=== PATIENT | female | born 1970 | race Caucasian/White ===

== ENCOUNTER 2022-01-09 01:33 | Emergency (ER) | payer OTHER, SELFPAY ==
[2022-01-09 01:53] VITALS: BP 128/67; PULSE 72; RESP 16; TEMP 36.8; O2SAT 97
[2022-01-09 01:59] VITALS: BP 128/67; PULSE 72; RESP 16; TEMP 36.8; O2SAT 98; BMI 35.1
[2022-01-09] MEDS: Ketorolac Tromethamine 30 MG/ML VIAL 15 MG IM (02:08)
[2022-01-09] MEDS: Acetaminophen 325 MG TABLET 975 MG PO (02:09)
[2022-01-09 02:51] LABS: MANUAL DIFF FLAG NO
[2022-01-09 02:52] LABS: Basophils Percent Auto 0.3 % (0-2); Eosinophils Absolute Auto 0.1 X10*3/uL (0.0-0.4); Eosinophils Percent Auto 1.4 % (0-4); Hematocrit 42.6 % (37.0-47.0); Hemoglobin 13.7 g/dl (12.0-16.0); Imm Gran Abs Auto 0.06 X10*3/uL (0.00-0.03); Imm Gran Pct Auto 0.6 % (0.0-0.4); Lymphocytes Absolute Auto 2.9 X10*3/uL (1.2-4.9); Mean Corpuscular HGB Conc 32.2 g/dl (31.0-35.0); Mean Corpuscular Hemoglobin 27.8 pg (27.0-33.0); Mean Corpuscular Volume 86.6 fL (80.0-98.0); Mean Platelet Volume 9.5 fL (9.4-12.3); Monocytes Absolute Auto 0.5 X10*3/uL (0.1-1.2); Monocytes Percent Auto 4.9 % (2-11); Neutrophils Absolute Auto 6.1 x10*3/uL (2.0-8.3); Neutrophils Percent Auto 62.8 % (45-73); Platelet Count 325 X10*3/uL (160-400); Red Blood Count 4.92 X10*6/uL (4.20-5.50); Red Cell Distribution Width 14.6 % (11.0-16.0); White Blood Count 9.7 X10*3/uL (4.8-10.8)
[2022-01-09 03:14] LABS: Alanine Aminotransferase 18 U/L (0-31); Albumin Level 3.8 g/dL (3.5-5.0); Alkaline Phosphatase 103 U/L (39-117); Anion Gap 14 (12-20); Aspartate Amino Transferase 24 U/L (5-31); Bilirubin Total 0.4 mg/dL (0.0-1.0); Blood Urea Nitrogen 7 mg/dL (9-16); Calcium 9.4 mg/dL (8.4-10.2); Carbon Dioxide 23 mmol/L (22-29); Chloride 108 mmol/L (96-108); Creatinine Clr Calc Pharmacy 59.2; Estimated Glomerular Filt Rate 47; Glucose Random 89 mg/dL (60-115); Potassium 3.9 mmol/L (3.3-5.1); Sodium 141 mmol/L (135-145); Total Protein 7.6 g/dL (6.5-8.0)
--- NOTE | 2022-01-09 03:38 | PC.NURSE ---
Pt states im feeling better after being medicated. pt awaiting for d/c instructions. will continue to monitor pt.
--- NOTE | 2022-01-09 03:54 | ED_ITS ---
HPI - Headache General Chief Complaint: Headache Stated Complaint: BODY TINGLING,SOLO TOP OF HEAD X'S 2 HOURS PER EMS Time Seen by Provider: 01/09/22 01:58 Source: patient Mode of arrival: EMS History of Present Illness HPI Narrative: This is a 51-year-old female who presents via EMS for feeling tingly all over just prior to taking her evening propanolol and states that she took her blood pressure and it was noted be 148/90 and she felt thereafter that she had pain on the top of her head which started approximately 2330. She denies any fever, chills, nausea, vomiting, diarrhea, shortness of breath, new cough for congestion and denies any chest pain or palpitations. Related Data Allergies Allergy/AdvReac Type Severity Reaction Status Date / Time azathioprine [From IMURAN] Allergy Severe UNKNOWN Unverified 08/17/20 15:13 Penicillins [PCN] Allergy Severe ANAPHYLAXIS Unverified 08/17/20 15:13 sumatriptan [SUMATRIPTAN] Allergy Intermediate SWELLING Unverified 08/17/20 15:13 amoxicillin [AMOXICILLIN] Allergy Unknown RAPID Unverified 08/17/20 15:13 HEART RATE quetiapine [From SEROQUEL] Allergy Unknown RAPID Unverified 08/17/20 15:13 HEART RATE aspirin [ASA] AdvReac Mild RASH WHEN Unverified 08/17/20 15:13 TAKEN FOR A LONG TIME contrast dye ? type Allergy Unknown Uncoded 04/08/14 00:00 Review of Systems Review of Systems: Pertinent positives and negatives as stated HPI 10 point review of systems is otherwise negative. PMFSH Past Medical History Source: nursing notes reviewed Social History Social History Advance Directives: No Patient : No Physical Exam Vital Signs: Vital Signs: Last Vital Signs Temp 98.2 F 01/09/22 01:59 Pulse 72 01/09/22 01:59 Resp 16 01/09/22 01:59 BP 128/67 01/09/22 01:59 Pulse Ox 98 01/09/22 01:59 BMI result Body Mass Index 35.1 VITAL SIGNS: Reviewed. GENERAL: Well developed, well nourished, in no acute distress. HEAD: Normocephalic/atraumatic EYES: PERRLA, EOMI OROPHARYNX: no oral lesions noted, posterior pharynx clear LUNGS: Normal breath sounds. No adventitious sounds or accessory muscle use. [id number]<> CARDIOVASCULAR: Regular rate and rhythm without noted murmurs, no JVD or lower e xtremity edema. ABDOMEN: Soft, non-tender, non-distended with bowel sounds. MUSCULOSKELETAL: No tenderness, deformities, or effusions noted on gross inspection. EXTREMITIES: No cyanosis, clubbing or edema. SKIN: Inspection of the skin reveals no rashes NEUROLOGIC: Alert and oriented x 4. Strength and sensation to light touch were grossly intact x 4, no facial asymmetry, no pronator drift, cranial nerves 2-12 are grossly intact, no clonus Course Course Course Narrative: 51-year-old female with history and clinical presentation of migraine and suspect that this is part of her migraine spectrum, there is a possibility of metabolic derangement but low clinical suspicion for intracranial neurologic problem. On review of all investigations there are no acute findings and after patient received combination of analgesics she states she has had complete resolution of her headache and feels ready to go home. She is otherwise discharged home in stable condition. MDM - Headache Lab Data Result diagrams: 01/09/22 02:37 01/09/22 02:37 Labs: Lab Results 01/09/22 01/09/22 Range/Units 02:37 02:37 WBC 9.7 (4.8-10.8) X10*3/uL RBC 4.92 (4.20-5.50) X10*6/uL Hgb 13.7 (12.0-16.0) g/dl Hct 42.6 (37.0-47.0) % MCV 86.6 (80.0-98.0) fL MCH 27.8 (27.0-33.0) pg MCHC 32.2 (31.0-35.0) g/dl RDW 14.6 (11.0-16.0) % Plt Count 325 (160-400) X10*3/uL MPV 9.5 (9.4-12.3) fL Immature Gran % (Auto) 0.6 H (0.0-0.4) % Neut % (Auto) 62.8 (45-73) % Lymph % (Auto) 30.0 (20-40) % [place] % (Auto) 4.9 (2-11) % Eos % (Auto) 1.4 (0-4) % Baso % (Auto) 0.3 (0-2) % Lymph # (Auto) 2.9 (1.2-4.9) X10*3/uL [place] # (Auto) 0.5 (0.1-1.2) X10*3/uL Eos # (Auto) 0.1 (0.0-0.4) X10*3/uL Baso # (Auto) 0.0 (0.0-0.2) X10*3/uL Abs Immat Gran (auto) 0.06 H (0.00-0.03) X10*3/uL Absolute Neuts (auto) 6.1 (2.0-8.3) x10*3/uL Absolute Nucleated RBC 0.000 (0.0-0.012) X10*3/uL Nucleated RBC % (auto) 0.0 (0.0-0.2) /100WBC Sodium 141 (135-145) mmol/L Potassium 3.9 (3.3-5.1) mmol/L Chloride 108 (96-108) mmol/L Carbon Dioxide 23 (22-29) mmol/L Anion Gap 14 (12-20) BUN 7 L (9-16) mg/dL Creatinine 1.21 (0.5-1.4) mg/dL Estim Creat Clear Calc 59.2 Estimated GFR 47 Random Glucose 89 (60-115) mg/dL Calcium 9.4 (8.4-10.2) mg/dL Total Bilirubin 0.4 (0.0-1.0) mg/dL AST 24 (5-31) U/L ALT 18 (0-31) U/L Alkaline Phosphatase 103 (39-117) U/L Total Protein 7.6 (6.5-8.0) g/dL Albumin 3.8 (3.5-5.0) g/dL Discharge Plan Discharge Clinical Impression: Migraine Patient Disposition: Home, Self-Care Instructions: Migraine Headache (ED) Additional Instructions: 1. Resume all home medications as prescribed. 2. Follow-up with your primary care provider next 1-2 days for re-evaluation further outpatient management. Return to the ER for acute worsening of symptoms.
== END 2022-01-09 04:34 | disposition home or self-care (01) ==
PROVIDERS: Emergency Provider Student in an Organized Health Care Education/Training Program
DX: G43.909 Migraine, unspecified, not intractable, without status migrainosus (principal)
CPT/HCPCS: 36415; 80053; 85025; 96372; 99283; 99284; J1885

== ENCOUNTER 2022-05-03 07:07 | Emergency (ER) | payer OTHER, SELFPAY ==
--- NOTE | ~2022-05-03 | CT_ITS ---
EXAMINATION: CT ABDOMEN AND PELVIS WITHOUT CONTRAST CLINICAL INFORMATION: Lower abdominal pain. Suspected fistula. COMPARISON: None TECHNIQUE: Multidetector volumetric imaging was performed from the superior aspect of the liver through the pubic symphysis. Sagittal and coronal reformatted images were obtained on the technologist's workstation. This CT examination was performed using dose optimization techniques as appropriate, variously including the following: *Automated exposure control *Adjustment of mA and/or kV according to patient size (this includes techniques or standardized protocols for targeted exams where dose is matched to indication/reason for exam; i.e. extremities or head) *Use of iterative reconstruction technique DLP: 692 mGy-cm FINDINGS: LUNG BASES: The visualized lung bases are unremarkable. LIVER, GALLBLADDER, AND BILIARY TREE: The liver is normal in size, shape, and attenuation. No focal hepatic lesion or biliary ductal dilatation is present. The gallbladder is unremarkable with no evidence of radiopaque gallstones, gallbladder wall thickening, or obvious pericholecystic inflammatory changes. PANCREAS: Unremarkable. SPLEEN: Unremarkable. ADRENAL GLANDS: Unremarkable. KIDNEYS AND URETERS: The kidneys are normal in size, shape, and attenuation. No hydronephrosis, hydroureter, or calculi seen. No perinephric stranding. BLADDER: Unremarkable. GASTROINTESTINAL TRACT: The stomach is unremarkable. Normal caliber small bowel. No obstruction. Contrast extends throughout the small bowel and much of the colon. Mild colonic stool burden. No colonic wall thickening or adjacent inflammation. No perianal inflammation. No fistulous tract identified. No fluid collections. ABDOMINAL WALL: No significant hernia is appreciated. LYMPH NODES: Normal. VASCULAR: Normal caliber aorta. 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 PELVIC VISCERA: The uterus and adnexa are unremarkable. OSSEOUS STRUCTURES: No acute or suspicious osseous abnormality. CT/CT abdomen pelvis wo con IMPRESSION: No acute finding in the abdomen or pelvis. No inflammatory changes. No perirectal fistula identified. No fluid collection. Fleischner guidelines were followed.
[2022-05-03 07:11] VITALS: BP 151/80; PULSE 91; RESP 17; TEMP 37.1; O2SAT 96; BMI 30.9
[2022-05-03 07:32] LABS: MANUAL DIFF FLAG NO
[2022-05-03 07:33] LABS: Color Urine YELLOW; Glucose Urine UA NEG (NEG); Leukocyte Esterase Urine 3+ (NEG); Nitrite Urine POS (NEG); Specific Gravity - Urine <= 1.005 (1.005-1.025); UACC Culture Trigger YES; Urine Blood 2+ (NEG); Urine Ketones NEG (NEG); Urine Protein TRACE MG/DL (NEG-TRACE)
[2022-05-03 07:34] LABS: Appearance Urine CLOUDY
[2022-05-03 07:35] LABS: Basophils Percent Auto 0.3 % (0-2); Eosinophils Absolute Auto 0.2 X10*3/uL (0.0-0.4); Eosinophils Percent Auto 2.1 % (0-4); Hematocrit 41.6 % (37.0-47.0); Hemoglobin 13.8 g/dl (12.0-16.0); Imm Gran Abs Auto 0.03 X10*3/uL (0.00-0.03); Imm Gran Pct Auto 0.3 % (0.0-0.4); Lymphocytes Absolute Auto 2.1 X10*3/uL (1.2-4.9); Lymphocytes Percent Auto 21.4 % (20-40); Mean Corpuscular HGB Conc 33.2 g/dl (31.0-35.0); Mean Corpuscular Hemoglobin 29.1 pg (27.0-33.0); Mean Corpuscular Volume 87.6 fL (80.0-98.0); Mean Platelet Volume 8.9 fL (9.4-12.3); Monocytes Absolute Auto 0.6 X10*3/uL (0.1-1.2); Monocytes Percent Auto 5.7 % (2-11); Neutrophils Absolute Auto 6.8 x10*3/uL (2.0-8.3); Neutrophils Percent Auto 70.2 % (45-73); Platelet Count 308 X10*3/uL (160-400); Red Blood Count 4.75 X10*6/uL (4.20-5.50); Red Cell Distribution Width 13.9 % (11.0-16.0); White Blood Count 9.7 X10*3/uL (4.8-10.8)
[2022-05-03 07:46] LABS: Bacteria Urine TRACE /LPF; Squamous Epithelial Cell Urine 1+ /LPF; WBC Urine TNTC /HPF (0-4)
[2022-05-03 07:50] LABS: Alanine Aminotransferase 48 U/L (0-31); Albumin Level 3.8 g/dL (3.5-5.0); Alkaline Phosphatase 120 U/L (39-117); Anion Gap 12 (12-20); Aspartate Amino Transferase 48 U/L (5-31); Bilirubin Total 0.5 mg/dL (0.0-1.0); Blood Urea Nitrogen 11 mg/dL (9-16); Calcium 9.6 mg/dL (8.4-10.2); Carbon Dioxide 22 mmol/L (22-29); Chloride 109 mmol/L (96-108); Creatinine Clr Calc Pharmacy 57.7; Estimated Glomerular Filt Rate 50; Glucose Random 104 mg/dL (60-115); Potassium 4.2 mmol/L (3.3-5.1); Sodium 139 mmol/L (135-145); Total Protein 7.5 g/dL (6.5-8.0)
--- NOTE | 2022-05-03 08:19 | ED.FEMALEGU ---
HPI - Female Genitourinary General Chief complaint: Urogenital-Female Stated complaint: UTI Time Seen by Provider: 05/03/22 08:19 Source: patient Mode of arrival: ambulatory History of Present Illness HPI Narrative: 52-year-old female with history of Crohn's presents with 4 UTIs within 3 months which is abnormal for her, patient reports chills and sweating but denies any nausea or vomiting states she has lower abdominal discomfort and feels like she has ?bubbles when she pees?. Patient states she is on Remicade. Related Data Previous Rx's Medication Instructions Recorded levofloxacin 750 mg tablet 750 mg PO DAILY 7 Days #7 tab 05/03/22 Allergies Allergy/AdvReac Type Severity Reaction Status Date / Time azathioprine [From IMURAN] Allergy Severe UNKNOWN Verified 05/03/22 12:06 Penicillins [PCN] Allergy Severe ANAPHYLAXIS Verified 05/03/22 12:06 sumatriptan [SUMATRIPTAN] Allergy Intermediate SWELLING Verified 05/03/22 12:06 amoxicillin [AMOXICILLIN] Allergy Unknown RAPID Verified 05/03/22 12:06 HEART RATE quetiapine [From SEROQUEL] Allergy Unknown RAPID Verified 05/03/22 12:06 HEART RATE aspirin [ASA] AdvReac Mild RASH WHEN Verified 05/03/22 12:06 TAKEN FOR A LONG TIME contrast dye ? type AdvReac Unknown hyperventil Uncoded 05/03/22 12:06 ation Review of Systems Review of Systems: Pertinent positives and negatives as stated in HPI 10 point review of systems is otherwise negative. PMFSH Past Medical History Source: nursing notes reviewed Social History Social History Advance Directives: No Advance Directives Information Provided: No Physical Exam Vital Signs: Vital Signs: Last Vital Signs Temp 98.7 F 05/03/22 07:11 Pulse 79 05/03/22 12:30 Resp 14 05/03/22 12:30 BP 133/81 05/03/22 12:30 Pulse Ox 95 05/03/22 12:30 BMI result Body Mass Index 30.9 VITAL SIGNS: Reviewed. GENERAL: Well developed, well nourished, in no acute distress. HEAD: Normocephalic/atraumatic EYES: PERRLA, EOMI EARS: Ext canals without abnormality OROPHARYNX: no oral lesions noted, posterior pharynx clear LUNGS: Normal breath sounds. No adventitious sounds or accessory muscle use. SpO2<96> CARDIOVASCULAR: Regular rate and rhythm without noted murmurs ABDOMEN: Soft, lower abdominal discomfort without rebound, non-distended with bowel sounds. MUSCULOSKELETAL: No tenderness, deformities, or effusions noted on gross inspection. EXTREMITIES: No cyanosis, clubbing or edema. SKIN: Inspection of the skin reveals no rashes NEUROLOGIC: Alert and oriented x 4. Strength and sensation to light touch were grossly intact x 4. Course Course Course Narrative: 52-year-old female with history and clinical presentation suggestive of UTI, but given history and underlying medical diagnosis suspect this may be a colovesicular fistula. Patient receiving IV fluids, antibiotics, and gave some medication for her pain. I discussed the case with surgery on-call who agrees with further imaging and recommends abdomen pelvis with p.o. contrast. Review of all investigations negative for evidence of inflammatory changes on CT scan and otherwise no acute abnormalities other than the UTI. This patient has been treated previously will place her on a longer course of antibiotics and have her follow-up with her chief of staff doctor, and/or provide her with a referral. In addition, she was recommended to follow-up with a urologist. I informed Surgical Services of all results and findings. There is agreement patient to follow-up with gastroenterology. MDM - Female Genitourinary Lab Data Result diagrams: 05/03/22 07:26 05/03/22 07:26 Labs: Lab Results 05/03/22 05/03/22 05/03/22 Range/Units 07:26 07:26 07:26 WBC 9.7 (4.8-10.8) X10*3/uL RBC 4.75 (4.20-5.50) X10*6/uL Hgb 13.8 (12.0-16.0) g/dl Hct 41.6 (37.0-47.0) % MCV 87.6 (80.0-98.0) fL MCH 29.1 (27.0-33.0) pg MCHC 33.2 (31.0-35.0) g/dl RDW 13.9 (11.0-16.0) % Plt Count 308 (160-400) X10*3/uL MPV 8.9 L (9.4-12.3) fL Immature Gran % (Auto) 0.3 (0.0-0.4) % Neut % (Auto) 70.2 (45-73) % Lymph % (Auto) 21.4 (20-40) % [place] % (Auto) 5.7 (2-11) % Eos % (Auto) 2.1 (0-4) % Baso % (Auto) 0.3 (0-2) % Lymph # (Auto) 2.1 (1.2-4.9) X10*3/uL [place] # (Auto) 0.6 (0.1-1.2) X10*3/uL Eos # (Auto) 0.2 (0.0-0.4) X10*3/uL Baso # (Auto) 0.0 (0.0-0.2) X10*3/uL Abs Immat Gran (auto) 0.03 (0.00-0.03) X10*3/uL Absolute Neuts (auto) 6.8 (2.0-8.3) x10*3/uL Absolute Nucleated RBC 0.000 (0.0-0.012) X10*3/uL Nucleated RBC % (auto) 0.0 (0.0-0.2) /100WBC Sodium 139 (135-145) mmol/L Potassium 4.2 (3.3-5.1) mmol/L Chloride 109 H (96-108) mmol/L Carbon Dioxide 22 (22-29) mmol/L Anion Gap 12 (12-20) BUN 11 D (9-16) mg/dL Creatinine 1.15 (0.5-1.4) mg/dL Estim Creat Clear Calc 57.7 Estimated GFR 50 Random Glucose 104 (60-115) mg/dL Calcium 9.6 (8.4-10.2) mg/dL Total Bilirubin 0.5 (0.0-1.0) mg/dL AST 48 H D (5-31) U/L ALT 48 H (0-31) U/L Alkaline Phosphatase 120 H (39-117) U/L Total Protein 7.5 (6.5-8.0) g/dL Albumin 3.8 (3.5-5.0) g/dL Urine Color YELLOW Urine Appearance CLOUDY Urine pH 6.0 (5.0-8.0) Ur Specific [place] <= 1.005 (1.005-1.025) Urine Protein TRACE (NEG-TRACE) MG/DL Urine Glucose (UA) NEG (NEG) MG/DL Urine Ketones NEG (NEG) MG/DL Urine Blood 2+ H (NEG) Urine Nitrite POS H (NEG) Ur Leukocyte Esterase 3+ H (NEG) Urine RBC 5-9 H (0) /HPF Urine WBC TNTC H (0-4) /HPF Ur Squamous Epith Cells 1+ /LPF Urine Bacteria TRACE /LPF Discharge Plan Discharge Clinical Impression: Urinary tract infection, Abdominal pain Patient Disposition: Home, Self-Care Instructions: Kidney Infection (ED), Abdominal Pain (ED), Levofloxacin (By mouth) Additional Instructions: 1. Resume all home medications as prescribed. 2. Complete the entire course of antibiotics as prescribed. However, follow-up with your primary care provider so that the results of the urine culture can be reviewed and your antibiotics can be adjusted accordingly. Recommend [id number] Tylenol/ibuprofen as needed for pain control. 3. Call the office of your primary care provider today and set up an appointment for re-evaluation. Return to the ER for worsening symptoms. Prescriptions: New levofloxacin 750 mg tablet 750 mg PO DAILY 7 Days Qty: 7 0RF Referrals: Lane Garvin [Physician] - Stand Alone Forms: Work/School Release
[2022-05-03 09:01] VITALS: BP 129/80; PULSE 81; RESP 16; O2SAT 96
[2022-05-03] MEDS: cefTRIAXone sodium 1 GM in 0.9 % Sodium Chloride 50 ML IV (10:41)
[2022-05-03] MEDS: 0.9 % Sodium Chloride 1,000 ML 999 ML IV (10:42)
[2022-05-03] MEDS: Ketorolac Tromethamine 30 MG/ML VIAL 15 MG IVPUSH (12:08)
[2022-05-03 12:30] VITALS: BP 133/81; PULSE 79; RESP 14; O2SAT 95
[2022-05-03] MEDS: Barium Sulfate Oral (Mocha) 450 ML ORAL.SUSP 900 ML PO (13:05)
== END 2022-05-03 14:52 | disposition home or self-care (01) ==
PROVIDERS: Emergency Provider Student in an Organized Health Care Education/Training Program
DX: N39.0 Urinary tract infection, site not specified (principal); R10.30 Lower abdominal pain, unspecified; K50.90 Crohn's disease, unspecified, without complications; Z79.899 Other long term (current) drug therapy; Z87.440 Personal history of urinary (tract) infections
CPT/HCPCS: 36415; 74176; 80053; 81001; 85025; 87086; 96365; 96375; 99283; 99284; J0696; J1885

== ENCOUNTER 2023-11-30 22:21 | Emergency (ER) | payer OTHER, SELFPAY ==
--- NOTE | 2023-11-30 | ECG_ITS ---
Test Reason : TACHY Blood Pressure : / mmHG Vent. Rate : 109 BPM Atrial Rate : 109 BPM P-R Int : 162 ms QRS Dur : 074 ms QT Int : 324 ms P-R-T Axes : 041 021 015 degrees QTc Int : 436 ms Sinus tachycardia Low voltage QRS Borderline ECG When compared with ECG of 12-JUL-2015 13:28, No significant change was found Referred By: Generic ED Physician Electronically Signed By:ILDEFONSO BILLINGS
[2023-11-30 22:37] VITALS: BP 158/69; BP 160/95; PULSE 107; RESP 16; TEMP 37.5; O2SAT 96; O2SAT 98; BMI 35.5
[2023-11-30 22:40] VITALS: BP 158/69; PULSE 107; PULSE 109; RESP 16; TEMP 37.5; O2SAT 96
--- NOTE | 2023-11-30 22:42 | PC.NURSE ---
Pt presents to ED with reports of feeling like her heart is racing and that she is felt pauses in her pulse while palpating starting around 2100. Pt stated she has tachycardia and takes propanolol for that. Pt also has hx of anxiety Pt is A&Ox4, GCS 15, with warm, dry skin. EMS placed a 20g IV in the Left forearm. Pt shows no obvious signs of shortness of breath or distress. Does appear to be anxious. EKG and bloodwork obtained, pt placed on night monitor, and pt waiting ED Provider.
--- NOTE | 2023-11-30 22:46 | ED.ARRPALP ---
HPI - Arrhythmia/Palpitations General Chief Complaint: Arrhythmia/Palpitations Stated Complaint: PALPITATIONS. Time Seen by Provider: 11/30/23 22:45 Source: patient Mode of arrival: EMS Limitations: no limitations History of Present Illness HPI narrative: 53-year-old female history of tachycardia on propanolol, Crohn's disease, fibromyalgia, migraine who presents emergency department for evaluation of palpitations and skipping beats. Patient states that she was watching television around 19:00 hours when she felt her heart was beating fast. She states that she then checked her pulse in felt like she was skipping beats. She does have a history of tachycardia and she took 60 mg of propanolol but this did not improve her symptoms. She felt lightheaded and dizzy as if she was going to pass out so she called an ambulance and was brought to the emergency department. At the time my evaluation she states that the palpitations have resolved. Patient states that she has increase the amount of caffeine that she drinks from 2 cups to 4 cups today. Patient also takes marijuana edibles for her fibromyalgia and Crohn's disease. She states that over the last 6 months she has increased her dose from 5 mg of THC a day to 30 mg of THC a day. She denied being under any stress or having any anxiety She denied fever, chills, diaphoresis, nausea, vomiting. Related Data Previous Rx's Medication Instructions Recorded levofloxacin 750 mg tablet 750 mg PO DAILY 7 days #7 tabs 05/03/22 Allergies Allergy/AdvReac Type Severity Reaction Status Date / Time azathioprine [From IMURAN] Allergy Severe UNKNOWN Verified 05/03/22 12:06 Penicillins [PCN] Allergy Severe ANAPHYLAXIS Verified 05/03/22 12:06 sumatriptan [SUMATRIPTAN] Allergy Intermediate SWELLING Verified 05/03/22 12:06 amoxicillin [AMOXICILLIN] Allergy Unknown RAPID Verified 05/03/22 12:06 HEART RATE quetiapine [From SEROQUEL] Allergy Unknown RAPID Verified 05/03/22 12:06 HEART RATE aspirin [ASA] AdvReac Mild RASH WHEN Verified 05/03/22 12:06 TAKEN FOR A LONG TIME contrast dye ? type AdvReac Unknown hyperventil Uncoded 05/03/22 12:06 ation Review of Systems Review of Systems: Yes all other systems are reviewed and are negative [facility] Past Medical History Attestation statement: The following information was validated with the patient. [facility] Narrative: Social history: The patient denies tobacco use. She rarely drinks alcohol. She does use 30 mg of edible marijuana per day Social History Social History Smoked in Last 30 Days: No Use of substances other than those prescribed or required for medical reasons: Yes Substance Use Type: Marijuana Substance Use Frequency: Occasionally Advance Directives: No Advance Directives Information Provided: No Patient : No Physical Exam Vital Signs: Vital Signs: Last Vital Signs Temp 99.5 F 12/01/23 00:25 Pulse 91 12/01/23 00:25 Resp 16 12/01/23 00:25 BP 129/75 12/01/23 00:25 Pulse Ox 94 12/01/23 00:25 O2 Del Method Room Air 12/01/23 00:25 BMI result Body Mass Index 35.5 Vital signs revealed an elevated pulse of 107 and elevated blood pressure of 158/69 Exam: General: Awake, alert in no distress Head: Normocephalic, atraumatic EENT: PERRL, Lids normal, sclera normal, conjunctiva normal, nose normal , ears normal, throat without erythema or exudates Neck: Supple, no adenopathy, no trachea midline or C-spine tenderness Lung: breath sounds symmetric, no wheezing, rales or rhonchi Chest: symmetric movement, nontender Heart: Tachycardia with regular rhythm, normal S1, S2 no murmurs or rubs Abdomen: soft, non-tender, nondistended, normal bowel sounds Back: no vertebral tenderness, no CVAT Extremities: no deformities, moves all extremities symmetrically Neuro: Awake, alert, oriented, normal speech,, moves all extremities symmetrically Psych: Pleasant, cooperative Medical Decision Making Medical Decision Making [facility] Narrative: 53-year-old female history of tachycardia on propanolol, Crohn's disease, fibromyalgia, migraine who presents emergency department for evaluation of palpitations and skipping beats. Symptoms started while she was at rest, she took her propanolol 60 mg orally which did not relieve her symptoms. She started feel lightheaded dizzy therefore she called 911 was brought to emergency department by ambulance. Patient has increase the amount of caffeine that she has been drinking over the last 6 months and is also increase the amount of double marijuana from 5 mg to 30 mg a day. She uses marijuana to treat her Crohn's disease and fibromyalgia. At the time my evaluation the patient was asymptomatic. Physical exam did reveal tachycardia with a regular rhythm otherwise was unremarkable. Following evaluation was ordered: CBC, CMP, troponin, TSH with free T4, EKG 00:55 My interpretation patient's laboratory evaluation is as follows: CBC normal. CMP was normal. TSH was normal. Troponin was detectable but not elevated at 6.1. Patient's EKG was consistent with sinus tachycardia otherwise unremarkable. Patient had no further episodes of palpitations while she was here in the emergency department. Patient was advised to cut down on the amount of caffeine that she uses in the continue taking her propanolol and night. She was given printed and verbal instructions and discharged home Differential Diagnosis Differential Diagnoses: The differential diagnosis associated with the presentation includes Differential diagnosis includes was not limited to myocardial infarction, myocardial ischemia, palpitations, hyperthyroidism, electrolyte abnormalities, anemia Admission/Observation Consideration of admission/observation: Escalation of care including admission/observation considered Lab Data MDM Lab Attestation statement: I reviewed the patient's lab results. 11/30/23 23:05 11/30/23 23:05 Labs: Lab Results 11/30/23 Range/Units 23:05 WBC 10.6 (4.8-10.8) X10*3/uL RBC 4.50 (4.20-5.50) X10*6/uL Hgb 13.3 (12.0-16.0) g/dl Hct 39.2 (37.0-47.0) % MCV 87.1 (80.0-98.0) fL MCH 29.6 (27.0-33.0) pg MCHC 33.9 (31.0-35.0) g/dl RDW 13.3 (11.0-16.0) % Plt Count 313 (160-400) X10*3/uL MPV 8.7 L (9.4-12.3) fL Immature Gran % (Auto) 0.3 (0.0-0.4) % Neut % (Auto) 60.6 (45-73) % Lymph % (Auto) 28.3 (20-40) % [place] % (Auto) 6.5 (2-11) % Eos % (Auto) 3.9 (0-4) % Baso % (Auto) 0.4 (0-2) % Lymph # (Auto) 3.0 (1.2-4.9) X10*3/uL [place] # (Auto) 0.7 (0.1-1.2) X10*3/uL Eos # (Auto) 0.4 (0.0-0.4) X10*3/uL Baso # (Auto) 0.0 (0.0-0.2) X10*3/uL Abs Immat Gran (auto) 0.03 (0.00-0.03) X10*3/uL Absolute Neuts (auto) 6.4 (2.0-8.3) x10*3/uL Absolute Nucleated RBC 0.000 (0.0-0.012) X10*3/uL Nucleated RBC % (auto) 0.0 (0.0-0.2) /100WBC Sodium 141 (135-145) mmol/L Potassium 4.3 (3.3-5.1) mmol/L Chloride 108 (96-108) mmol/L Carbon Dioxide 22 (22-29) mmol/L Anion Gap 15 (12-20) BUN 14 (9-16) mg/dL Creatinine 1.03 (0.5-1.4) mg/dL Estim Creat Clear Calc 68.3 Estimated GFR 56 Random Glucose 100 (60-115) mg/dL Calcium 9.3 (8.4-10.2) mg/dL Total Bilirubin 0.4 (0.0-1.0) mg/dL AST 29 (5-31) U/L ALT 27 (0-31) U/L Alkaline Phosphatase 88 (39-117) U/L Troponin I High Sens 6.1 (<3.5-17.0) ng/L Total Protein 7.1 (6.5-8.0) g/dL Albumin 3.7 (3.5-5.0) g/dL TSH 1.09 (0.32-4.0) uIU/mL Independent Interpretation I performed an independent interpretation of an: EKG Interpretation: My interpretation patient's 12 EKG done at 22:31 hours is as follows: Sinus tachycardia with a rate of 109, normal AL interval, QRS duration and QTC interval, no ST segment elevation, no ST segment depression, no PACs, no PVCs, no significant T-wave abnormalities. Chronic Conditions Patient?s care impacted by: Other (Crohn's disease, fibromyalgia, tachycardia) Discharge Plan Discharge Clinical Impression: Palpitations Patient Disposition: Home, Self-Care Instructions: Heart Palpitations (ED) Additional Instructions: Your blood work was normal. Your thyroid screening test was normal. Your EKG was unremarkable. Your symptoms are consistent with palpitations Consider cutting down on the amount of caffeine that your using. Follow-up with your doctor in 2 days. Please return to the emergency department if your symptoms get worse or if you develop any symptoms that are concerning to you. Prescriptions: No Action levofloxacin 750 mg tablet 750 mg PO DAILY 7 Days Qty: 7 0RF
[2023-11-30 23:09] LABS: MANUAL DIFF FLAG NO
[2023-11-30 23:12] LABS: Basophils Percent Auto 0.4 % (0-2); Eosinophils Absolute Auto 0.4 X10*3/uL (0.0-0.4); Eosinophils Percent Auto 3.9 % (0-4); Hematocrit 39.2 % (37.0-47.0); Hemoglobin 13.3 g/dl (12.0-16.0); Imm Gran Abs Auto 0.03 X10*3/uL (0.00-0.03); Imm Gran Pct Auto 0.3 % (0.0-0.4); Lymphocytes Percent Auto 28.3 % (20-40); Mean Corpuscular HGB Conc 33.9 g/dl (31.0-35.0); Mean Corpuscular Hemoglobin 29.6 pg (27.0-33.0); Mean Corpuscular Volume 87.1 fL (80.0-98.0); Mean Platelet Volume 8.7 fL (9.4-12.3); Monocytes Absolute Auto 0.7 X10*3/uL (0.1-1.2); Monocytes Percent Auto 6.5 % (2-11); Neutrophils Absolute Auto 6.4 x10*3/uL (2.0-8.3); Neutrophils Percent Auto 60.6 % (45-73); Platelet Count 313 X10*3/uL (160-400); Red Cell Distribution Width 13.3 % (11.0-16.0); White Blood Count 10.6 X10*3/uL (4.8-10.8)
[2023-11-30 23:30] LABS: Troponin-I High Sensitivity 6.1 ng/L (<3.5-17.0)
[2023-11-30 23:31] LABS: Alanine Aminotransferase 27 U/L (0-31); Albumin Level 3.7 g/dL (3.5-5.0); Alkaline Phosphatase 88 U/L (39-117); Anion Gap 15 (12-20); Aspartate Amino Transferase 29 U/L (5-31); Bilirubin Total 0.4 mg/dL (0.0-1.0); Blood Urea Nitrogen 14 mg/dL (9-16); Calcium 9.3 mg/dL (8.4-10.2); Carbon Dioxide 22 mmol/L (22-29); Chloride 108 mmol/L (96-108); Creatinine Clr Calc Pharmacy 68.3; Estimated Glomerular Filt Rate 56; Glucose Random 100 mg/dL (60-115); Potassium 4.3 mmol/L (3.3-5.1); Sodium 141 mmol/L (135-145); Total Protein 7.1 g/dL (6.5-8.0)
[2023-11-30 23:44] LABS: TSH reflex Free T4 1.09 uIU/mL (0.32-4.0)
[2023-12-01 00:25] VITALS: BP 129/75; PULSE 91; RESP 16; TEMP 37.5; O2SAT 94
== END 2023-12-01 01:01 | disposition home or self-care (01) ==
PROVIDERS: Emergency Provider Emergency Medicine Emergency Medical Services
DX: R00.2 Palpitations (principal); R00.0 Tachycardia, unspecified; K50.90 Crohn's disease, unspecified, without complications; F12.90 Cannabis use, unspecified, uncomplicated; Z79.899 Other long term (current) drug therapy
CPT/HCPCS: 36415; 80053; 84443; 84484; 85025; 93005; 99283; 99285

== ENCOUNTER → 2023-11-30 22:31 | Outpatient (BNV) | payer OTHER, SELFPAY | PROVIDERS: Emergency Provider Emergency Medicine Emergency Medical Services; Visit Provider Internal Medicine | DX: R00.0 Tachycardia, unspecified (principal) | CPT/HCPCS: 93010 ==

== ENCOUNTER 2023-12-08 13:36 | Emergency (ER) | payer OTHER, SELFPAY ==
--- NOTE | ~2023-12-08 | XR_ITS ---
EXAMINATION: XR CHEST CLINICAL INFORMATION: Shortness of breath, chest pain. COMPARISON: Chest radiograph 06/30/2020. TECHNIQUE: 2 views of the chest were obtained. FINDINGS: Normal appearance of the cardiomediastinal silhouette. No focal consolidation, pleural effusion or pneumothorax. Thoracic spondylosis. No acute osseous findings. XR/XR chest 2V IMPRESSION: No acute cardiopulmonary findings.
--- NOTE | 2023-12-08 13:55 | ECG_ITS ---
Test Reason : chest pain Blood Pressure : / mmHG Vent. Rate : 085 BPM Atrial Rate : 085 BPM P-R Int : 186 ms QRS Dur : 072 ms QT Int : 358 ms P-R-T Axes : 047 023 024 degrees QTc Int : 426 ms Normal sinus rhythm Low voltage QRS Borderline ECG When compared with ECG of 30-NOV-2023 22:31, No significant change was found Referred By: Kimberly Loaiza Electronically Signed By:SANDY ANDERSON MD
[2023-12-08 14:02] VITALS: BP 115/68; PULSE 84; RESP 18; TEMP 37.2; O2SAT 95; BMI 34.2
--- NOTE | 2023-12-08 14:02 | ED_ITS ---
HPI - General Adult General Chief complaint: General Medical Stated complaint: Chest heaviness/SOB/Fever Source: patient Mode of arrival: ambulatory Limitations: no limitations History of Present Illness HPI narrative: Patient is a 53 year old assigned female at with no reported medical history presenting to the emergency department today with body aches, chest heaviness, and shortness of breath. Patient states that last night she began to have body aches, chest heaviness, and shortness of breath. Patient denies any dizziness, lightheadedness, abdominal pain, nausea, vomiting, fever, chills, blurry vision, double vision, loss of vision, back pain, night sweats, pain with urination, increased urinary frequency, increased urinary urgency, blood in her urine or stool, syncope or a near syncopal episode, recent trauma or falls, bowel incontinence, bladder incontinence, bowel retention, bladder retention, or any other complaints at this time. Onset (ago): day(s) (1) Severity: mild Severity scale (1-10): 3 Relieving factors: none Exacerbating factors: none Associated symptoms: chest pain and shortness of breath Treatments prior to arrival: none Related Data Previous Rx's Medication Instructions Recorded levofloxacin 750 mg tablet 750 mg PO DAILY 7 days #7 tabs 05/03/22 Allergies Allergy/AdvReac Type Severity Reaction Status Date / Time azathioprine [From IMURAN] Allergy Severe UNKNOWN Verified 05/03/22 12:06 Penicillins [PCN] Allergy Severe ANAPHYLAXIS Verified 05/03/22 12:06 sumatriptan [SUMATRIPTAN] Allergy Intermediate SWELLING Verified 05/03/22 12:06 amoxicillin [AMOXICILLIN] Allergy Unknown RAPID Verified 05/03/22 12:06 HEART RATE quetiapine [From SEROQUEL] Allergy Unknown RAPID Verified 05/03/22 12:06 HEART RATE aspirin [ASA] AdvReac Mild RASH WHEN Verified 05/03/22 12:06 TAKEN FOR A LONG TIME contrast dye ? type AdvReac Unknown hyperventil Uncoded 05/03/22 12:06 ation Review of Systems 2 Constitutional: Constitutional: Reports no additional constitutional complaints, Reports body ache(s), Denies chills, Denies fever(s) and Denies night sweats Eyes: Eyes: Reports no additional eye complaints, Denies blurry vision, Denies change in vision, Denies diplopia, Denies eye discharge, Denies loss of vision and Denies eye pain ENT: Denies dizziness Cardiovascular: Cardiovascular: Reports no additional cardiovascular complaints, Reports chest pain, Denies lightheadedness, Denies Loss of Consciousness and Reports dyspnea Respiratory: Respiratory: Reports no additional respiratory complaints and Reports dyspnea Gastrointestinal: Gastrointestinal: Reports no additional gastrointestinal complaints, Denies abdominal pain, Denies melena, Denies hematochezia, Denies change in bowel habits and Denies change in stool character Genitourinary: Genitourinary: Denies hematuria, Denies urinary frequency, Denies dysuria, Denies urinary incontinence, Denies urinary hesitancy and Denies urinary urgency Musculoskeletal: Musculoskeletal: Reports no additional musculoskeletal complaints, Denies numbness and Denies tingling Neurologic: Denies dizziness, Denies loss of vision, Denies numbness and Denies tingling Psychiatric: Psychiatric: Reports no additional psychiatric complaints Endocrine: Endocrine: Reports no additional endocrine complaints Hematologic/Lymphatic: Hematologic/Lymphatic: Reports no additional hematologic/lymphatic complaints Allergic/Immunologic: Allergic/Immunologic: Reports no additional allergic/immunologic complaints PMFSH Past Medical History Attestation statement: The following information was validated with the patient. Source: old records reviewed and nursing notes reviewed Onset Date is defined in the Problem List Problems that require an onset date and time if occurred within 24 hrs of arrival to the ED Aortic Dissection and Rupture; Neurologic impairment; Cardiopulmonary Arrest; Endotracheal Intubation; Insertion or Replacement of Mechanical Circulatory Assist Device Social History Social History Substance Use Type: Marijuana Advance Directives: No Advance Directives Information Provided: No Physical Exam ED Vital Signs: BMI result Body Mass Index 34.2 Const General: cooperative, no acute distress, alert and awake Nutritional Appearance: well nourished Orientation/consciousness: patient oriented x3 Limitations: no limitations HENMT Head: Yes normal to inspection and Yes atraumatic Ears: hearing grossly normal bilaterally and external ears normal General nose exam: Normal external nose present, no nasal discharge noted and no epistaxis Face and sinus: Yes normal facial exam, No abrasion and No laceration Mouth: Normal oral and palatal mucosa present, no drooling and no muffled voice Eyes General: appearance normal, both eyes and all related structures Periorbital: periorbital findings normal Eyelids: Yes eyelids normal Conjunctivae: conjunctivae normal Pupils: Equal, round and reactive pupils present EOM: EOMs intact bilaterally Neck Neck: Yes normal visual inspection, Yes full ROM and Yes no lymphadenopathy Chest Chest palpation & inspection: normal inspection of the chest Resp Effort & Inspection: normal respiratory effort and able to speak in complete sentences GI Inspection: Yes normal to inspection Neuro General: patient oriented x3 and moves all extremities Cranial nerves: Yes Equal, round and reactive pupils present Cognition (Neuro): normal cognition Motor exam (neuro): 5/5 motor strength present throughout Sensory Exam: Normal double simultaneous stimulation for sensation Coordination: [id number] test normal Extrem General: Yes normal to inspection, Yes full ROM and Yes capillary refill normal Psych Appearance: grossly normal Mental Status: mental status grossly normal Affect: normal affect Attitude: cooperative Thought process: Normal thought process present Thought content: Normal thought content present Insight: Good insight present (Psych) Course Course Course Narrative: RME performed by Kimberly Loaiza PA-C. Patient is a 53 year old assigned female at presenting to the emergency department with SOB, chest heaviness, and feeling genearlly unwell. Detailed physical exam and review of systems are deferred to the water project manager. Labs, imaging, and swabs ordered. Patient placed back in the waiting room pending room availability and results. Medical Decision Making Medical Decision Making [facility] Narrative: Patient is a 53 year old assigned female at with no reported medical history presenting to the emergency department today with body aches, chest pain, and shortness of breath. Patient's limited physical exam performed in triage was unremarkable. Patient's blood work showed a mildly elevated WBC count but were otherwise unremarkable. Patient's urine showed no acute process. Patient's EKG was unremarkable. Patient's chest x-ray showed no acute process. Patient left the department without completing treatment. Patient left the department before myself or any of the other emergency department clinicians could review or explain physical exam findings, test results, need or lack there of for additional testing, treatment options or a treamtent plan. Differential Diagnosis Differential Diagnoses: The differential diagnosis associated with the presentation includes COVID-19 RSV Influenza PNA STEMI NSTEMI Admission/Observation Consideration of admission/observation: Escalation of care including admission/observation considered Patient would have been admitted to the hospital had her work up had any findings where hospital admission was appropriate, her clinical presentation warranted hospital admission, and she hadn't left the department. Lab Data [facility] Lab Attestation statement: I reviewed the patient's lab results. My interpretation of these results are in the [facility] Rationale portion of this note. 12/08/23 14:19 12/08/23 14:20 Labs: Lab Results 12/08/23 12/08/23 Range/Units 14:19 14:20 WBC 14.2 H (4.8-10.8) X10*3/uL RBC 4.54 (4.20-5.50) X10*6/uL Hgb 13.3 (12.0-16.0) g/dl Hct 40.4 (37.0-47.0) % MCV 89.0 (80.0-98.0) fL MCH 29.3 (27.0-33.0) pg MCHC 32.9 (31.0-35.0) g/dl RDW 13.2 (11.0-16.0) % Plt Count 299 (160-400) X10*3/uL MPV 9.0 L (9.4-12.3) fL Immature Gran % (Auto) 0.4 (0.0-0.4) % Neut % (Auto) 77.9 H (45-73) % Lymph % (Auto) 13.6 L (20-40) % [place] % (Auto) 6.4 (2-11) % Eos % (Auto) 1.5 (0-4) % Baso % (Auto) 0.2 (0-2) % Lymph # (Auto) 1.9 (1.2-4.9) X10*3/uL [place] # (Auto) 0.9 (0.1-1.2) X10*3/uL Eos # (Auto) 0.2 (0.0-0.4) X10*3/uL Baso # (Auto) 0.0 (0.0-0.2) X10*3/uL Abs Immat Gran (auto) 0.06 H (0.00-0.03) X10*3/uL Absolute Neuts (auto) 11.1 H (2.0-8.3) x10*3/uL Absolute Nucleated RBC 0.000 (0.0-0.012) X10*3/uL Nucleated RBC % (auto) 0.0 (0.0-0.2) /100WBC PT 13.0 (11.1-13.3) SEC INR 1.1 (0.9-1.1) APTT 38.6 H (26.0-36.4) SEC Sodium 140 (135-145) mmol/L Potassium 4.4 (3.3-5.1) mmol/L Chloride 109 H (96-108) mmol/L Carbon Dioxide 22 (22-29) mmol/L Anion Gap 13 (12-20) BUN 9 (9-16) mg/dL Creatinine 0.95 (0.5-1.4) mg/dL Estim Creat Clear Calc 72.6 Estimated GFR > 60 Random Glucose 106 (60-115) mg/dL Calcium 9.5 (8.4-10.2) mg/dL Magnesium 2.1 (1.6-2.6) mg/dL Total Bilirubin 0.3 (0.0-1.0) mg/dL AST 20 (5-31) U/L ALT 17 (0-31) U/L Alkaline Phosphatase 87 (39-117) U/L Troponin I High Sens < 2.7 D (<3.5-17.0) ng/L Total Protein 7.1 (6.5-8.0) g/dL Albumin 3.8 (3.5-5.0) g/dL Urine Color Yellow Urine Appearance Clear Urine pH 6.0 (5.0-9.0) Ur Specific [place] 1.020 (1.005-1.025) Urine Protein Trace (Neg-Trace) mg/dL Urine Glucose (UA) Negative (Negative) mg/dL Urine Ketones Negative (Negative) mg/dL Urine Blood Negative (Negative) Urine Nitrite Negative (Negative) Ur Leukocyte Esterase Moderate (2+) H (Negative) Urine RBC 0-2 (0-2) /HPF Urine WBC 11-20 H (0-5) /HPF Ur Squamous Epith Cells 11-20 (0-2) /HPF Urine Bacteria None Seen (None Seen) Hyaline Casts 0-2 (0-2) /LPF Influenza Type A (PCR) NEGATIVE (Negative) Influenza Type B (PCR) NEGATIVE (Negative) RSV RNA Qual (PCR) NEGATIVE (Negative) SARS-CoV-2 RNA (RT-PCR) NEGATIVE (Negative) Independent Interpretation I performed an independent interpretation of an: EKG and Plain X-Ray Interpretation: My interpretation is in agreement with the radiologist's impression of this imaging study. - EXAMINATION: XR CHEST CLINICAL INFORMATION: Shortness of breath, chest pain. COMPARISON: Chest radiograph 06/30/2020. TECHNIQUE: 2 views of the chest were obtained. FINDINGS: Normal appearance of the cardiomediastinal silhouette. No focal consolidation, pleural effusion or pneumothorax. Thoracic spondylosis. No acute osseous findings. XR/XR chest 2V IMPRESSION: No acute cardiopulmonary findings. Dictated By: Stephanie Hameed Signed By: Electronically signed by Stephanie Hameed 12/08/23 1534 - Vent. Rate: 085 BPM Atrial Rate: 085 BPM P-R Int: 186 ms QRS Dur: 072 ms QT Int: 358 ms P-R-T Axes: 047 023 024 degrees QTc Int: 426 ms Normal sinus rhythm Low voltage QRS Borderline ECG When compared with ECG of 30-NOV-2023 22:31, No significant change was found Electronically Signed By:SHAHBAZ ANDERSON MD Dictated By: Shahbaz Anderson MD Signed By: Electronically signed by Shahbaz Anderson MD 12/08/23 2262 Radiology Impression Discussion of test interpretation with radiology: I have reviewed the radiologist's reading. Discharge Plan Discharge Clinical Impression: Chest pain, Shortness of breath, Body aches Patient Disposition: Left W/O Completing Treatment Prescriptions: No Action levofloxacin 750 mg tablet 750 mg PO DAILY 7 Days Qty: 7 0RF Discharge Date/Time: 12/08/23 17:11
== END 2023-12-08 17:11 | disposition left against medical advice (07) ==
PROVIDERS: Emergency Provider Emergency Medicine
DX: R07.89 Other chest pain (principal); R06.02 Shortness of breath; R50.9 Fever, unspecified; M79.10 Myalgia, unspecified site; Z20.822 Contact with and (suspected) exposure to COVID-19; Z20.828 Contact with and (suspected) exposure to other viral communicable diseases; Z79.899 Other long term (current) drug therapy
CPT/HCPCS: 0241U; 71046; 80053; 81001; 83735; 84484; 85025; 85610; 85730; 87086; 93005; 99283

== ENCOUNTER → 2023-12-08 13:55 | Outpatient (BNV) | payer OTHER, SELFPAY | PROVIDERS: Emergency Provider Emergency Medicine; Visit Provider Internal Medicine Cardiovascular Disease | DX: R07.9 Chest pain, unspecified (principal) | CPT/HCPCS: 93010 ==

== ENCOUNTER 2024-01-07 10:27 | Outpatient (AMB) | payer OTHER, SELFPAY ==
--- NOTE | 2024-01-07 10:39 | A.OFFPC_ITS ---
Vital Signs 01/07/24 10:42 Height 5 ft 2 in Weight 194 lb 8 oz BMI 35.6 BP 124/62 Blood Pressure Location Lt brachial Position Sitting Pulse 92 Pulse Source Pulse Oximeter Pulse Oximetry (%) 96 Oxygen Delivery Method Room Air Intake Visit Reasons: New patient-Crohn's disease, Fibromyalgia Intake Note: Patient is a new patient here to establish care for Crohn's disease, Fib romyalgia, Migraine, Bipolar, Depression, Anxiety, Chronic pain. Complaint of Fatigue, and pain in left arm. Transferring care from Dr Alcantara ([facility] medicine, [facility]). Medical records have been requested and have received. Metal Furniture Repairer Required: No Digital Sales Assistant: Not Required per policy Accompanied by: Self / Same As Patient Allergies azathioprine [From IMURAN] Allergy (Severe, Verified 01/09/24 11:25) UNKNOWN Penicillins [PCN] Allergy (Severe, Verified 01/09/24 11:25) ANAPHYLAXIS oxycodone Allergy (Intermediate, Verified 01/09/24 11:25) Palpitations amoxicillin [AMOXICILLIN] Allergy (Unknown, Verified 01/09/24 11:25) RAPID HEART RATE quetiapine [From SEROQUEL] Allergy (Unknown, Verified 01/09/24 11:25) RAPID HEART RATE aspirin [ASA] Adverse Reaction (Mild, Verified 01/09/24 11:25) RASH WHEN TAKEN FOR A LONG TIME contrast dye ? type Adverse Reaction (Unknown, Uncoded 01/09/24 11:25) hyperventilation Medication List - Last Reconciled 01/09/24 by Severo Hardwick MD desvenlafaxine succinate ER 200 mg PO QAM gabapentin 300 mg PO DAILY lamotrigine 200 mg PO DAILY omeprazole 40 mg PO DAILY ondansetron HCl 8 mg PO DAILY PRN propranolol ER 60 mg PO DAILY ustekinumab (Stelara) mg subcut Q8W ziprasidone HCl 80 mg PO BID Tobacco use date assessed: 01/07/24 Dental Screening Dental Screen Date: 01/07/24 Did you have a dental visit in the last 12 months?: Yes Did you have a dental problem in the last 6 months where you did not have access to dental care?: No Was dental information given to patient?: Patient has dentist HPI New patient-Crohn's disease, Fibromyalgia HPI Details 53-year-old female presents to the offic e to discuss her medical issues. Patient has history of fibromyalgia, active Crohn's disease and depression. She has on a disease modifying agent for the Crohn's disease. Patient is transferring with a long list of medications that need to be reviewed. Old medical chart is not available. Patient is bringing up a new complaint today. She reports she has intense urges to fall asleep during the day. She says she is fallen asleep with food in her mouth at the table, many times on the couch. She does not drive. The symptoms have been occurring for the past few months. [facility], [facility] Medical History (Updated 01/09/24 @ 11:38 by Severo Hardwick MD) Fibromyalgia Surgical History (Updated 01/07/24 @ 10:52 by CASE Blackman) History of hand surgery History of colonoscopy History of D&C History of eye surgery Family History (Updated 01/07/24 @ 10:52 by CASE Blackman) Other Mental health disorder Substance use disorder Social History (Updated 01/07/24 @ 10:53 by CASE Blackman) Housing: House Alcohol intake: never Patient Tobacco Use Status: Never used Tobacco Tobacco use type: Smokeless Tobacco e-Cigarette/Vaping Use: Currently Using Second Hand Smoke Exposure: No Substance Use Type: Marijuana service: No Current occupational status: employed Current occupation: DDS Cognitive needs: No Hearing needs: No Vision needs: Yes (Glasses) Questionnaire PHQ-9 Over the last 2 weeks, how often have you been bothered by any of the following problems? 1. Little interest or pleasure in doing things: nearly every day 2. Feeling down, depressed, or hopeless: nearly every day 3. Trouble falling or staying asleep, or sleeping too much: nearly every day 4. Feeling tired or having little energy: nearly every day 5. Poor appetite or overeating: not at all 6. Feeling bad about yourself - or that you are a failure or have let yourself or your family down: several days 7. Trouble concentrating on things, such as reading the newspaper or watching television: nearly every day 8. Moving or speaking so slowly that other people could have noticed. Or the opposite - being so fidgety or restless that you have been moving around a lot more than usual: not at all 9. Thoughts that you would be better off or of hurting yourself in some way: not at all Total score: 16 Depression Screening Interpretation: Positive Depression Screening Follow-up: Existing condition and In treatment Depression Screening Done: Yes Source: Developed by Drs. Lane Sierra, Gela Robert, Donte Alvarez and colleagues, with an educational tamiko from [employer]. Thrive Questionnaire Date Thrive assessed: 01/07/24 I am a: Patient What is your living situation today?: I have a steady place to live Within the past 12 months, did the food you bought not last and you didn't have the money to get more?: Never true Within the past 12 months, did you worry whether your food would run out before you got money to buy more?: Never true Do you have trouble paying for medicines?: No Do you have trouble getting transportation to medical appointments?: No Do you have trouble paying your heating and electricity bill?: No Do you have trouble taking care of your child, family member or friend?: No Do you have trouble with day-to-day activities such as bathing, preparing meals, shopping, managing finances, etc.?: No Are you currently unemployed and looking for a job?: No Are you interested in more education?: No Currently or been in a relationship where the following occur: no concerns reported THRIVE Score: 0 AUDIT C Alcohol Use Questionnaire (AUDIT-C) 1. How often do you have a drink containing alcohol?: Never Total Score: 0 LUL-7 AMB Questionnaire LUL-7 Date LUL - 7 assessed: 01/07/24 Feeling nervous, anxious, or on edge: 2 = More than half the days Not being able to stop or control worryin = More than half the days Worrying too much about different things: 2 = More than half the days Trouble relaxin = Nearly every day Being so restless that it is hard to sit still: 3 = Nearly every day Becoming easily annoyed or irritable: 2 = More than half the days Feeling afraid as if something awful might happen: 3 = Nearly every day Total LUL-7 score (0-4 normal; 5-9 mild; 10-14 moderate; 15-21 severe): 17 Source: Developed by Drs. Lane Sierra, Gela Robert, Donte Alvarez and colleagues, with an educational tamiko from [employer]. Physical exam (Primary Care) Vital Signs: Last Vital Signs Pulse 92 01/07/24 10:42 BP 124/62 01/07/24 10:42 Pulse Ox 96 01/07/24 10:42 Oxygen Delivery Method Room Air 01/07/24 10:42 Care Plan Goal for BP management: Blood pressure is in range. Continue current medications. BMI result Body Mass Index 35.6 BMI Assessment/Plan discussion: High (1 lb per week weight loss suggested.) BMI High, discussed plan: lifestyle, weight reduction, dietary and physical activity Tobacco/Smoking Status: Tobacco use Status Tobacco use date assessed 01/07/24 01/07/24 11:01 Patient Tobacco Use Status Never used Tobacco 01/07/24 11:01 Tobacco use type Smokeless Tobacco 01/07/24 10:53 e-Cigarette/Vaping Use Currently Using 01/07/24 11:01 PHQ-9: PHQ-9 Score PHQ-9: Total score 16 01/07/24 11:05 Depression Screening Interpretation: Positive Depression Screening Follow-up: Existing condition and In treatment Thrive Assessment: Date of Thrive Assessment Date Thrive assessed 01/07/24 01/07/24 11:01 Currently or been in a relationship where the following occur: no concerns reported Const General: cooperative and healthy appearing Nutritional Appearance: well nourished Orientation/consciousness: patient oriented x3 Limitations: no limitations HENMT Head: Yes normal to inspection Eyes General: appearance normal, both eyes and all related structures Neck Neck: Yes normal visual inspection Chest Chest palpation & inspection: normal palpation of entire chest wall Resp Effort & Inspection: normal respiratory effort Neuro General: patient oriented x3 Assessment and Plan Assessment & Plan (1) 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 (2) Fibromyalgia: Code(s): M79.7 - Fibromyalgia Plan: Old records have been requested. Entire medication list was discussed with the patient. Orders: Referrals Neurology Referral G47.419 - Narcolepsy without cataplexy Coding Level of Care Code New Pt Level 3 (46433) Diagnoses Narcolepsy G47.419 Fibromyalgia M79.7
[2024-01-07 10:42] VITALS: BP 124/62; PULSE 92; O2SAT 96; BMI 35.6
== END 2024-01-07 11:26 | disposition home or self-care (01) ==
PROVIDERS: PCP Internal Medicine; Visit Provider Internal Medicine
DX: G47.419 Narcolepsy without cataplexy (principal); M79.7 Fibromyalgia
CPT/HCPCS: 99203

== ENCOUNTER 2024-04-02 14:27 | Emergency (ER) | payer OTHER, SELFPAY ==
--- NOTE | ~2024-04-02 | CT_ITS ---
EXAMINATION: CT HEAD WITHOUT CONTRAST CLINICAL INFORMATION: Acute headache. COMPARISON: None available. TECHNIQUE: Contiguous axial imaging was performed from the skull base to vertex without intravenous administration of contrast. This CT examination was performed using dose optimization techniques as appropriate, variously including the following: *Automated exposure control *Adjustment of mA and/or kV according to patient size (this includes techniques or standardized protocols for targeted exams where dose is matched to indication/reason for exam; i.e. extremities or head) *Use of iterative reconstruction technique DLP: 657 mGy-cm FINDINGS: There is no acute intracranial hemorrhage. There is no evidence of acute/subacute cerebral or cerebellar infarction. There is no midline shift or mass effect. There is no extra-axial fluid collection. The ventricles are normal in size. The orbits are normal in appearance. The calvarium is intact. The mastoid air cells are well aerated. Paranasal sinuses are clear. CT/CT head/brain wo IV con IMPRESSION: No acute intracranial pathology.
[2024-04-02 14:36] VITALS: BP 150/90; BP 197/102; PULSE 121; RESP 18; TEMP 36.8; O2SAT 100; O2SAT 99; BMI 35.4
--- NOTE | 2024-04-02 14:44 | ECG_ITS ---
Test Reason : TACHYCARDIA Blood Pressure : / mmHG Vent. Rate : 122 BPM Atrial Rate : 122 BPM P-R Int : 154 ms QRS Dur : 078 ms QT Int : 306 ms P-R-T Axes : 038 028 035 degrees QTc Int : 436 ms Sinus tachycardia Low voltage QRS Borderline ECG When compared with ECG of 08-DEC-2023 14:13, No significant change was found Referred By: Generic ED Physician Electronically Signed By:ILDEFONSO BILLINGS
--- NOTE | 2024-04-02 14:45 | ED.HA ---
HPI - Headache General Chief Complaint: Headache Stated Complaint: HEADACHE TACHYCARDIA Time Seen by Provider: 04/02/24 14:39 Source: patient and old records reviewed Mode of arrival: EMS Limitations: no limitations History of Present Illness HPI Narrative: 53 yo female with PMH Of fibromyalgia, Crohns disease, depression, GERD, anxiety, chronic pain, migraines, here with c/o starting with headache on dome of head at 1pm at rest with associated anxiety. No head trauma no vomiting/nausea not on thinners. She notes no recent whiplash, fevers, chiropractic manipulation. The patient states when she got her headache she took her BP and itwas 200/99 then her HR went up and she panicked and now she has intense anxiety and is asking for anxiety medications. She states she is compliant with her BP medications. MD elicited complaint: headache and migraine Pertinent past history: migraines and hypertension Onset (ago): hour(s) (1pm today) Onset description: gradually and while at rest Location: right, left and parietal Severity: severe Quality & Timing: throbbing Exacerbating factors: none Relieving factors: nothing Context: occurred at rest Associated symptoms: other (anxiety) Treatments prior to arrival: none Related Data Home Medications ?Medication ?Instructions ?Recorded ?Confirmed desvenlafaxine succinate 100 mg 200 mg PO QAM 01/07/24 01/09/24 tablet,extended release 24 hr gabapentin 300 mg capsule 300 mg PO DAILY 01/07/24 01/09/24 lamotrigine 200 mg tablet 200 mg PO DAILY 01/07/24 01/09/24 omeprazole 40 mg capsule,delayed 40 mg PO DAILY 01/07/24 01/09/24 release ondansetron HCl 8 mg tablet 8 mg PO DAILY PRN 01/07/24 01/09/24 propranolol 60 mg capsule,24 60 mg PO DAILY 01/07/24 01/09/24 hr,extended release ustekinumab 90 mg/mL subcutaneous mg subcut Q8W 01/07/24 01/09/24 syringe (Kayra) ziprasidone HCl 80 mg capsule 80 mg PO BID 01/07/24 01/09/24 Allergies Allergy/AdvReac Type Severity Reaction Status Date / Time azathioprine [From IMURAN] Allergy Severe UNKNOWN Verified 04/02/24 14:41 Penicillins [PCN] Allergy Severe ANAPHYLAXIS Verified 04/02/24 14:41 oxycodone Allergy Intermediate Palpitation Verified 04/02/24 14:41 s amoxicillin [AMOXICILLIN] Allergy Unknown RAPID Verified 04/02/24 14:41 HEART RATE quetiapine [From SEROQUEL] Allergy Unknown RAPID Verified 04/02/24 14:41 HEART RATE aspirin [ASA] AdvReac Mild RASH WHEN Verified 04/02/24 14:41 TAKEN FOR A LONG TIME contrast dye ? type AdvReac Unknown hyperventil Uncoded 01/09/24 11:25 ation Review of Systems Review of Systems: Constitutional : No Fever, No Chills, No Fatigue ENT/Mouth : No sore throat, No Rhinorrhea Eyes: No Eye Pain, No Swelling, No Redness Cardiovascular : No Chest Pain, No SOB, No Dyspnea on Exertion Respiratory : No Cough, No Sputum Gastrointestinal : No Nausea, No Vomiting, No Diarrhea, No abdominal Pain Genitourinary : No Dysuria, No Urinary Frequency, No Hematuria, Musculoskeletal : No joint pain, No Myalgias, No Joint Swelling Skin : No Skin Lesions, No rash Neuro : No Weakness, No Numbness, No Dizziness, positive Headache Psych : pos Anxiety/Panic, No Depression Heme/Lymph: No Bruising, No Bleeding,No Lymphadenopathy Endocrine : No Polyuria, No Polydipsia All other systems reviewed and are negative PMFSH Past Medical History Attestation statement: The following information was validated with the patient. Source: old records reviewed Medical History Fibromyalgia Surgical History History of hand surgery History of colonoscopy History of D&C History of eye surgery Family History Family History (Updated 01/07/24 @ 10:52 by CASE Blackman) Other Mental health disorder Substance use disorder Social History Social History Housing: House Alcohol intake: never Patient Tobacco Use Status: Never used Tobacco Tobacco use type: Smokeless Tobacco e-Cigarette/Vaping Use: Currently Using Second Hand Smoke Exposure: No Substance Use Type: Marijuana Advance Directives: No Advance Directives Information Provided: Yes service: No Current occupational status: employed Current occupation: DDS Cognitive needs: No Hearing needs: No Vision needs: Yes (Glasses) Physical Exam Vital Signs: Vital Signs: Last Vital Signs Temp 98.3 F 04/02/24 14:36 Pulse 121 H 04/02/24 14:36 Resp 18 04/02/24 14:36 BP 197/102 H 04/02/24 14:36 Pulse Ox 100 04/02/24 14:36 O2 Del Method Room Air 04/02/24 14:36 BMI result Body Mass Index 35.4 Appearance: Alert. Oriented X3. Mild acute distress. anxious Eyes: Pupils equal, round and reactive to light. ENT: Pharynx normal. Neck: Normal inspection. Neck supple. no meningeal signs CVS: Normal heart rate and rhythm. Pulses normal. Respiratory: No respiratory distress. Breath sounds normal. Abdomen: Soft and nontender. Skin: Skin warm and dry. Normal skin color. Normal skin turgor. Extremities: No lower extremity edema. No calf ttp Neuro: Oriented X 3. No motor deficit. No sensory deficit. Course Course Course Narrative: signed out to Dr. Torres pending workup Medications Administered Generic Name Dose Route Start Last Admin Trade Name Freq PRN Reason Stop Dose Admin Sodium Chloride 1,000 mls @ 999 mls/hr 04/02/24 14:45 04/02/24 15:22 Ns IV 04/02/24 15:45 999 mls/hr .Q1H1M ONE Administration Discontinued Medications Generic Name Dose Route Start Last Admin Trade Name Freq PRN Reason Stop Dose Admin Lorazepam 1 mg 04/02/24 14:45 04/02/24 15:22 Lorazepam 2 Mg/Ml Vial IVPUSH 04/02/24 14:46 1 mg STAT STA Administration Medical Decision Making Medical Decision Making [facility] Narrative: 53 yo female with PMH Of fibromyalgia, Crohns disease, depression, GERD, anxiety, chronic pain, migraines, here with c/o headache starting at 1pm has no fevers, not on thinners, normal neuro exam - at this time she is very anxious I have ordered IV ativan she is requesting anxiety medications, basic labs, CT head she would be in the window for SAH. Suspect her HTN is related to anxiety. Differential Diagnosis Differential Diagnoses: The differential diagnosis associated with the presentation includes HTN, migraine, tension, anxiety, low susp for SAH, no fevers to suggest PILOT CAPTAIN infection Admission/Observation Consideration of admission/observation: Escalation of care including admission/observation considered Lab Data MDM Lab Attestation statement: I reviewed the patient's lab results. 04/02/24 15:20 04/02/24 15:20 Labs: Lab Results 04/02/24 Range/Units 15:20 WBC 11.0 H (4.8-10.8) X10*3/uL RBC 5.20 (4.20-5.50) X10*6/uL Hgb 15.2 (12.0-16.0) g/dl Hct 44.6 (37.0-47.0) % MCV 85.8 (80.0-98.0) fL MCH 29.2 (27.0-33.0) pg MCHC 34.1 (31.0-35.0) g/dl RDW 13.5 (11.0-16.0) % Plt Count 389 D (160-400) X10*3/uL MPV 8.7 L (9.4-12.3) fL Immature Gran % (Auto) 0.5 H (0.0-0.4) % Neut % (Auto) 65.9 (45-73) % Lymph % (Auto) 25.0 (20-40) % Forest % (Auto) 5.4 (2-11) % Eos % (Auto) 2.7 (0-4) % Baso % (Auto) 0.5 (0-2) % Lymph # (Auto) 2.8 (1.2-4.9) X10*3/uL Forest # (Auto) 0.6 (0.1-1.2) X10*3/uL Eos # (Auto) 0.3 (0.0-0.4) X10*3/uL Baso # (Auto) 0.1 (0.0-0.2) X10*3/uL Abs Immat Gran (auto) 0.06 H (0.00-0.03) X10*3/uL Absolute Neuts (auto) 7.2 (2.0-8.3) x10*3/uL Absolute Nucleated RBC 0.000 (0.0-0.012) X10*3/uL Nucleated RBC % (auto) 0.0 (0.0-0.2) /100WBC Independent Interpretation I performed an independent interpretation of an: EKG Interpretation: Rate: 122 Rhythm: sinus tachycardia Jefferson: normal Normal P waves. Normal JOHANNA. Normal QRS complex. ST T wave : normal no BERTRAM qTC: 436 prior studies: no acute ischemia The study has been interpreted contemporaneously by me. . External Record Review External record reviewed: Office record Discharge Plan Discharge Clinical Impression: Acute headache, Anxiety Patient Disposition: Still a Patient Instructions: Acute Headache (DC), Anxiety (ED) Prescriptions: No Action Stelara 90 mg/mL syringe subcut Q8W desvenlafaxine succinate 100 mg tablet extended release 24 hr 200 mg PO QAM ziprasidone HCl 80 mg capsule 80 mg PO BID gabapentin 300 mg capsule 300 mg PO DAILY omeprazole 40 mg capsule,delayed release(DR/EC) 40 mg PO DAILY propranolol 60 mg capsule,extended release 24 hr 60 mg PO DAILY lamotrigine 200 mg tablet 200 mg PO DAILY ondansetron HCl 8 mg tablet 8 mg PO DAILY PRN Print Language: Citizen [place]
[2024-04-02] MEDS: 0.9 % Sodium Chloride 1,000 ML 999 ML IV (15:22)
[2024-04-02] MEDS: LORazepam 2 MG/ML VIAL 1 MG IVPUSH ×2 (15:22→15:42)
[2024-04-02 15:26] LABS: MANUAL DIFF FLAG NO
[2024-04-02 15:27] LABS: Basophils Absolute Auto 0.1 X10*3/uL (0.0-0.2); Basophils Percent Auto 0.5 % (0-2); Eosinophils Absolute Auto 0.3 X10*3/uL (0.0-0.4); Eosinophils Percent Auto 2.7 % (0-4); Hematocrit 44.6 % (37.0-47.0); Hemoglobin 15.2 g/dl (12.0-16.0); Imm Gran Abs Auto 0.06 X10*3/uL (0.00-0.03); Imm Gran Pct Auto 0.5 % (0.0-0.4); Lymphocytes Absolute Auto 2.8 X10*3/uL (1.2-4.9); Mean Corpuscular HGB Conc 34.1 g/dl (31.0-35.0); Mean Corpuscular Hemoglobin 29.2 pg (27.0-33.0); Mean Corpuscular Volume 85.8 fL (80.0-98.0); Mean Platelet Volume 8.7 fL (9.4-12.3); Monocytes Absolute Auto 0.6 X10*3/uL (0.1-1.2); Monocytes Percent Auto 5.4 % (2-11); Neutrophils Absolute Auto 7.2 x10*3/uL (2.0-8.3); Neutrophils Percent Auto 65.9 % (45-73); Platelet Count 389 X10*3/uL (160-400); Red Cell Distribution Width 13.5 % (11.0-16.0)
--- NOTE | 2024-04-02 15:43 | PC.NURSE ---
pt remains sinus tachy - HR 110-115bpm. denies chest pain but verbalizes palpitations/sob. another dose of ativan administered IVP at this time. effectiveness pending. pt waiting to go to CT at this time.
[2024-04-02 15:49] LABS: Anion Gap 18 (12-20); Blood Urea Nitrogen 11 mg/dL (9-16); Calcium 10.2 mg/dL (8.4-10.2); Carbon Dioxide 22 mmol/L (22-29); Chloride 105 mmol/L (96-108); Creatinine Clr Calc Pharmacy 61.1; Estimated Glomerular Filt Rate 50; Glucose Random 109 mg/dL (60-115); Magnesium 2.1 mg/dL (1.6-2.6); Potassium 4.6 mmol/L (3.3-5.1); Sodium 140 mmol/L (135-145)
[2024-04-02 15:53] LABS: Troponin-I High Sensitivity 5.6 ng/L (<3.5-17.0)
[2024-04-02 16:07] LABS: TSH reflex Free T4 4.35 uIU/mL (0.32-4.0)
[2024-04-02 16:29] VITALS: BP 157/78; PULSE 105; RESP 18; TEMP 36.9; O2SAT 99
[2024-04-02 16:39] LABS: Free T4 (Free Thyroxine) 0.82 ng/dL (0.71-1.85)
[2024-04-02] MEDS: Ketorolac Tromethamine 15 MG/ML VIAL IVPUSH (17:02)
[2024-04-02] MEDS: diphenhydrAMINE HCL 50 MG/ML VIAL IVPUSH (17:02)
[2024-04-02] MEDS: Metoclopramide HCl 10 MG/2 ML VIAL IVPUSH (17:02)
[2024-04-02 18:24] VITALS: BP 157/78; PULSE 105; RESP 18; TEMP 36.9; O2SAT 99
== END 2024-04-02 18:24 | disposition home or self-care (01) ==
PROVIDERS: Emergency Medicine; Emergency Provider Emergency Medicine Emergency Medical Services
DX: R51.9 Headache, unspecified (principal); F41.9 Anxiety disorder, unspecified
CPT/HCPCS: 36415; 70450; 80048; 83735; 84439; 84443; 84484; 85025; 93005; 96361; 96374; 96375; 96376; 99284; J1200; J1885; J2060; J2765

== ENCOUNTER → 2024-04-02 14:44 | Outpatient (BNV) | payer OTHER, SELFPAY | PROVIDERS: Emergency Provider Emergency Medicine Emergency Medical Services; Visit Provider Internal Medicine | DX: R00.0 Tachycardia, unspecified (principal); R94.31 Abnormal electrocardiogram [ECG] [EKG] | CPT/HCPCS: 93010 ==

== ENCOUNTER 2024-04-06 07:07 | Emergency (ER) | payer OTHER, SELFPAY ==
[2024-04-06 07:21] VITALS: BP 180/93; PULSE 105; RESP 18; TEMP 36.3; O2SAT 98; BMI 36.6
== END 2024-04-06 08:50 | disposition left against medical advice (07) ==
PROVIDERS: Emergency Provider Emergency Medicine
DX: R51.9 Headache, unspecified (principal); Z53.21 Procedure and treatment not carried out due to patient leaving prior to being seen by health care provider
CPT/HCPCS: 99281

== ENCOUNTER 2024-04-23 10:54 | Outpatient (AMB) | payer OTHER, SELFPAY ==
--- NOTE | 2024-04-23 10:55 | MHC.OFFVIS ---
Vital Signs 04/23/24 11:01 Height 5 ft 3 in Weight 206 lb BMI 36.5 BP 148/88 H Blood Pressure Location Rt brachial Pulse 96 Pulse Source Pulse Oximeter Temp 99 F Pulse Oximetry (%) 99 Oxygen Delivery Method Room Air Intake Visit Reasons: INP-Narcolepsy w/out Cataplexy-LVM Intake Note: Patient presents for narcolepsy w/out cataplex. patient here for narcolepsy and headaches.has headaches daily. Allergies azathioprine [From IMURAN] Allergy (Severe, Verified 04/23/24 11:01) UNKNOWN Penicillins [PCN] Allergy (Severe, Verified 04/23/24 11:01) ANAPHYLAXIS oxycodone Allergy (Intermediate, Verified 04/23/24 11:01) Palpitations amoxicillin [AMOXICILLIN] Allergy (Unknown, Verified 04/23/24 11:01) RAPID HEART RATE quetiapine [From SEROQUEL] Allergy (Unknown, Verified 04/23/24 11:01) RAPID HEART RATE aspirin [ASA] Adverse Reaction (Mild, Verified 04/23/24 11:01) RASH WHEN TAKEN FOR A LONG TIME contrast dye ? type Adverse Reaction (Unknown, Uncoded 04/23/24 11:01) hyperventilation Medication List - Last Reconciled 04/23/24 by Candi Leggett, GEETA albuterol sulfate 90 mcg/actuation 1 inh inhalation QID desvenlafaxine succinate ER 200 mg PO QAM gabapentin 300 mg PO DAILY lamotrigine 200 mg PO DAILY metoclopramide HCl (Reglan) 10 mg PO Q6H PRN omeprazole 40 mg PO DAILY ondansetron HCl 8 mg PO DAILY PRN propranolol ER 60 mg PO DAILY ustekinumab (Stelara) mg subcut Q8W ziprasidone HCl 80 mg PO BID HPI Comments Details: Right-handed 54-yr-old female presents for new pt evaluation for possible narcolepsy, however pt thought referal was for her migraine d/o. Pt reports that her previous neurologist, Dr Nicole, was concerned that pt had narcolepsy, as she is prone to fall asleep at inappropriate times. She has never had a sleep study. She does endorse snoring, gasping, apneas, unrefreshing sleep, vivid dreams, may reach out for something as she is falling asleep into a dream, can dream within a few of falling asleep (even on her current psychiatric medications), sleep talking. Once had a hypnogenic hallucination when waking up from a dream. She has episodes where the urge to sleep comes on so suddenly she has to nap= once while driving, she had to warehouse puller to take a nap. She has to set her alarm for every hour- just to make sure she does not fall asleep. Finds working 2nd shift better- as it is much harder to wake up in the am. Typical bedtime 1pm until 8am. She has had s/s of hypersomia since adolescence- used to come home from school and take a nap. Also endorses bilateral foot cramps at rest. Denies sleep paralysis, sleep terrors, bouts of sudden weakness. She had EBV in middle school- was out of school x's 2 months. She notes it would be difficult to come off of desvenlafaxine d/t missing/late doses is not well tolerated. She has stopped Geodon. Both parents have sleep apnea- but not as sleepy as her. Denies family h/o narcolepsy. Pt also reports she has migraine since age 13. She has a 6-7 migraine attacks per month, which last 2 days. She previously was tx'd w/ sumatriptan- helped but caused generalized soreness, rizatriptan- ineffective, and botox w/ PREMPT protocol x's 2 cycles- ineffective, topiramate x's > 12 months- ineffective, Ajovy x's a few doses- ineffective. She is currently on Propranolol for tachycardia. Has a prn Reglan from the ER- helps. Not prone to constipation- has Chrohn's. [facility] Medical History Fibromyalgia Surgical History History of hand surgery History of colonoscopy History of D&C History of eye surgery Family History Other Mental health disorder Substance use disorder Social History Housing: House Alcohol intake: never Patient Tobacco Use Status: Never used Tobacco Tobacco use type: Smokeless Tobacco e-Cigarette/Vaping Use: Currently Using Second Hand Smoke Exposure: No Substance Use Type: Marijuana service: No Current occupational status: employed Current occupation: DDS Cognitive needs: No Hearing needs: No Vision needs: Yes (Glasses) Physical Exam Vital Signs: Last Vital Signs Temp 99 F 04/23/24 11:01 Pulse 96 04/23/24 11:01 BP 148/88 H 04/23/24 11:01 Pulse Ox 99 04/23/24 11:01 Oxygen Delivery Method Room Air 04/23/24 11:01 BMI result Body Mass Index 36.5 Const Orientation/consciousness: patient oriented x3 HEENT Other: No palpable scalp tenderness. Mallampati stage IV w/ small oral opening. Head: Yes normocephalic Resp Effort & Inspection: normal respiratory effort and able to speak in complete sentences Neuro General: patient oriented x3 Cranial nerves: Yes CN's II-XII intact bilaterally Cognition (Neuro): normal cognition Gait exam (Neuro): Normal gait present Motor exam (neuro): 5/5 motor strength present throughout Deep tendon reflexes (DTR's): Right triceps reflex intensity grade: 2+, Left triceps reflex intensity grade: 2+, Rt Biceps (C5, C6): 2+, Left biceps reflex intensity grade: 2+, Right brachioradialis reflex intensity grade: 2+, Left brachioradialis reflex intensity grade: 2+, Right patellar reflex intensity grade: 2+ and Left patellar reflex intensity grade: 2+ Coordination: [id number] test normal Pupils: Normal pupillary reactivity/response: bilateral Psych Appearance: grossly normal Mental Status: mental status grossly normal Speech and movement: Normal speech and movement present Affect: normal affect Attitude: cooperative Thought process: Normal thought process present Assessment & Plan Assessment & Plan (1) Sleep difficulties: Code(s): G47.9 - Sleep disorder, unspecified Category: Medical (2) Snoring: Code(s): R06.83 - Snoring Category: Medical (3) Excessive daytime sleepiness: Code(s): G47.19 - Other hypersomnia Category: Medical (4) Migraine without aura: Code(s): G43.009 - Migraine without aura, not intractable, without status migrainosus Category: Medical Plan Pt advised to undergo: HST to assess for sleep apnea. If HST normal or inconclusive- will schedule pt for in-lab PSG w/ MSLT- pt may stay on her current med regimen as she is symptomatic on this regimen. If MSLT were normal, then would consider weaning off all REM suppressing medications and repeating MSLT. For overall headache management: Optimize good self-care, including but not limited to maintaining a healthy diet, adequate fluid intake, adequate sleep, and engaging in regular physical activity. For headache triggers: Track headaches. For acute headache treatment: Discussed importance of taking acute medications at the first sign of headache, however stressed importance of avoiding acute medication overuse (especially with combined headache medications). Trial Ubrogepant (Ubrelvy) 100mg tab, 1/2 - 1 tab (50-100mg) at onset of headache, may repeat in 2 hours. Max of 2 tabs (200mg) per 24 hours. May adjunct with OTC Tylenol 650mg q 4 hours, Ibuprofen 600mg q 6 hours, or Naproxen 440mg q 12 hrs prn. May continue Metoclopramide 10mg prn sparingly. Potential adverse effects of gepants, including but not limited to fatigue, nausea, dry mouth, constipation. Previous acute migraine medication trials: sumatriptan- helped but caused generalized soreness, rizatriptan- ineffective Acute migraine medication contraindications: All triptans d/t poorly controlled BP. For headache prevention medication: Continue Propranolol ER 60mg qd- used for palpitations. Continue Desvenlafaxine Er 200mg qd- per psych. Previous migraine prevention medication trials: botox w/ PREMPT protocol x's 2 cycles- ineffective, topiramate x's > 12 months- ineffective, Ajovy x's a few doses- ineffective. Migraine prevention medication contraindications: Caution w/ TCAs d/t bipoalr dx. Case discussed with Dr Mckenna Arzate. Pt to follow-up in 3 months or sooner prn. Orders: Orders RT home sleep study Today G47.19 - Other hypersomnia, G47.9 - Sleep disorder, unspecified, R06.83 - Snoring Medications: New ubrogepant (Ubrelvy) take at onset of migraine, may repeat in 2hrs (may take w/ Ibuprofen) 50 - 100 mg (0.5 - 1 x 100 mg) PO ONCE PRN 16 tabs 3RF migraine headache 30 days Coding Level of Care Code New Pt Level 4 (13619) Diagnoses Sleep difficulties G47.9 Snoring R06.83 Excessive daytime sleepiness G47.19 Migraine without aura G43.009 [place] Sleepiness Scale Questions Sitting and reading: high chance of dozing Watching TV: high chance of dozing Sitting inactive in a theater, movie etc.: high chance of dozing As a passenger in a car for an hour without break: high chance of dozing Lying down in the afternoon when circumstances permit: high chance of dozing Sitting and talking to someone: slight chance of dozing Sitting quietly after lunch without alcohol: high chance of dozing In a car, while stopped for a few minutes in the traffic: would never doze ESS < 10: normal, ESS > 12: pathologic: 19
[2024-04-23 11:01] VITALS: BP 148/88; PULSE 96; TEMP 37.2; O2SAT 99; BMI 36.5
== END 2024-04-23 11:59 | disposition home or self-care (01) ==
PROVIDERS: PCP Internal Medicine; Visit Provider Nurse Practitioner Family
DX: G47.9 Sleep disorder, unspecified (principal); R06.83 Snoring; G47.19 Other hypersomnia; G43.009 Migraine without aura, not intractable, without status migrainosus
CPT/HCPCS: 99204

== ENCOUNTER → 2024-04-23 10:54 | Outpatient (BNVA) | payer OTHER, SELFPAY | PROVIDERS: PCP Internal Medicine; Visit Provider Nurse Practitioner Family | DX: G47.9 Sleep disorder, unspecified (principal); R06.83 Snoring; G47.419 Narcolepsy without cataplexy; G43.009 Migraine without aura, not intractable, without status migrainosus | CPT/HCPCS: 99202 ==

== ENCOUNTER 2024-05-09 00:26 | Emergency (ER) | payer OTHER, SELFPAY ==
--- NOTE | 2024-05-09 | ECG_ITS ---
Test Reason : PALPITATIONS Blood Pressure : / mmHG Vent. Rate : 115 BPM Atrial Rate : 115 BPM P-R Int : 164 ms QRS Dur : 074 ms QT Int : 308 ms P-R-T Axes : 049 037 045 degrees QTc Int : 426 ms Sinus tachycardia Otherwise normal ECG When compared with ECG of 02-APR-2024 14:44, No significant change was found Referred By: Generic ED Physician Electronically Signed By:ILDEFONSO BILLINGS
[2024-05-09 00:37] VITALS: BP 181/105; PULSE 120; RESP 20; TEMP 36.6; O2SAT 99; BMI 31.9
[2024-05-09 01:05] LABS: Basophils Absolute Auto 0.1 X10*3/uL (0.0-0.2); Basophils Percent Auto 0.4 % (0-2); Eosinophils Absolute Auto 0.3 X10*3/uL (0.0-0.4); Eosinophils Percent Auto 2.9 % (0-4); Hematocrit 41.5 % (37.0-47.0); Hemoglobin 14.1 g/dl (12.0-16.0); Imm Gran Abs Auto 0.04 X10*3/uL (0.00-0.03); Imm Gran Pct Auto 0.3 % (0.0-0.4); Lymphocytes Absolute Auto 3.9 X10*3/uL (1.2-4.9); Lymphocytes Percent Auto 34.2 % (20-40); MANUAL DIFF FLAG NO; Mean Corpuscular Hemoglobin 29.2 pg (27.0-33.0); Mean Corpuscular Volume 85.9 fL (80.0-98.0); Mean Platelet Volume 9.1 fL (9.4-12.3); Monocytes Absolute Auto 0.8 X10*3/uL (0.1-1.2); Monocytes Percent Auto 7.1 % (2-11); Neutrophils Absolute Auto 6.3 x10*3/uL (2.0-8.3); Neutrophils Percent Auto 55.1 % (45-73); Platelet Count 358 X10*3/uL (160-400); Red Blood Count 4.83 X10*6/uL (4.20-5.50); Red Cell Distribution Width 13.4 % (11.0-16.0); White Blood Count 11.5 X10*3/uL (4.8-10.8)
[2024-05-09 01:12] VITALS: BP 153/90; PULSE 102; RESP 13; TEMP 36.9; O2SAT 96
[2024-05-09 01:18] LABS: Alanine Aminotransferase 30 U/L (0-31); Albumin Level 4.1 g/dL (3.5-5.0); Alkaline Phosphatase 100 U/L (39-117); Anion Gap 13 (12-20); Aspartate Amino Transferase 30 U/L (5-31); Bilirubin Total 0.3 mg/dL (0.0-1.0); Blood Urea Nitrogen 12 mg/dL (9-16); Carbon Dioxide 26 mmol/L (22-29); Chloride 103 mmol/L (96-108); Creatinine Clr Calc Pharmacy 59.8; Estimated Glomerular Filt Rate 52; Glucose Random 96 mg/dL (60-115); Potassium 3.7 mmol/L (3.3-5.1); Sodium 138 mmol/L (135-145); Total Protein 7.6 g/dL (6.5-8.0)
[2024-05-09 01:32] LABS: Troponin-I High Sensitivity < 2.7 ng/L (<3.5-17.0)
--- NOTE | 2024-05-09 03:55 | ED.ARRPALP ---
HPI - Arrhythmia/Palpitations General Chief Complaint: Arrhythmia/Palpitations Stated Complaint: high blood pressure/ high heart rate Time Seen by Provider: 05/09/24 03:54 Source: patient Mode of arrival: ambulatory Limitations: no limitations History of Present Illness ED Provider: Dr. Jim Torres HPI narrative: 54-year-old female history of hypertension, depression, fibromyalgia, migraine headaches who presents emergency department for evaluation of palpitations after taking a new medication, Ubrelvy for migraine headaches. Patient states that approximately 1 hour after taking the medication she felt like her heart was pounding. She also states that her blood pressure was elevated. The medication did relieve her headache but she was concerned about her other symptoms so she came to the emergency department for evaluation. She denied fever, chills, chest pain, shortness of breath, lightheadedness, dizziness, nausea, vomiting, rash, pruritus Related Data Home Medications ?Medication ?Instructions ?Recorded ?Confirmed desvenlafaxine succinate 100 mg 200 mg PO QAM 01/07/24 04/23/24 tablet,extended release 24 hr gabapentin 300 mg capsule 300 mg PO DAILY 01/07/24 04/23/24 lamotrigine 200 mg tablet 200 mg PO DAILY 01/07/24 04/23/24 omeprazole 40 mg capsule,delayed 40 mg PO DAILY 01/07/24 04/23/24 release ondansetron HCl 8 mg tablet 8 mg PO DAILY PRN 01/07/24 04/23/24 propranolol 60 mg capsule,24 60 mg PO DAILY 01/07/24 04/23/24 hr,extended release ustekinumab 90 mg/mL subcutaneous mg subcut Q8W 01/07/24 01/09/24 syringe (Stelara) ziprasidone HCl 80 mg capsule 80 mg PO BID 01/07/24 01/09/24 albuterol sulfate 90 mcg/actuation 1 inh inhalation QID 04/23/24 04/23/24 aerosol inhaler Previous Rx's ?Medication ?Instructions ?Recorded metoclopramide HCl 10 mg tablet 10 mg PO Q6H PRN Headache, nausea 04/02/24 (Reglan) or vomiting #14 tabs ubrogepant 100 mg tablet (Ubrelvy) 50 - 100 mg (0.5 - 1 x 100 mg) PO 04/23/24 ONCE PRN migraine headache 30 days #16 tabs Allergies Allergy/AdvReac Type Severity Reaction Status Date / Time azathioprine [From IMURAN] Allergy Severe UNKNOWN Verified 05/09/24 00:41 Penicillins [PCN] Allergy Severe ANAPHYLAXIS Verified 05/09/24 00:41 oxycodone Allergy Intermediate Palpitation Verified 05/09/24 00:41 s amoxicillin [AMOXICILLIN] Allergy Unknown RAPID Verified 05/09/24 00:41 HEART RATE quetiapine [From SEROQUEL] Allergy Unknown RAPID Verified 05/09/24 00:41 HEART RATE aspirin [ASA] AdvReac Mild RASH WHEN Verified 05/09/24 00:41 TAKEN FOR A LONG TIME contrast dye ? type AdvReac Unknown hyperventil Uncoded 04/23/24 11:01 ation Review of Systems Review of Systems: Yes all other systems are reviewed and are negative [facility] Past Medical History Medical History Fibromyalgia Surgical History History of hand surgery History of colonoscopy History of D&C History of eye surgery Family History Family History Other Mental health disorder Substance use disorder Social History Social History Housing: House Alcohol intake: never Patient Tobacco Use Status: Never used Tobacco Tobacco use type: Smokeless Tobacco Smoked in Last 30 Days: No e-Cigarette/Vaping Use: Currently Using Second Hand Smoke Exposure: No Use of substances other than those prescribed or required for medical reasons: No Substance Use Type: Marijuana Advance Directives: No Advance Directives Information Provided: No service: No Current occupational status: employed Current occupation: DDS Cognitive needs: No Hearing needs: No Vision needs: Yes (Glasses) Physical Exam Vital Signs: Vital Signs: Last Vital Signs Temp 97.9 F 05/09/24 06:16 Pulse 89 05/09/24 06:16 Resp 14 05/09/24 06:16 BP 152/77 H 05/09/24 06:16 Pulse Ox 97 05/09/24 06:16 O2 Del Method Room Air 05/09/24 06:16 BMI result Body Mass Index 31.9 Vital signs revealed an elevated blood pressure and heart rate of 120 beats per minute Exam: General: Awake, alert in no distress Head: Normocephalic, atraumatic EENT: PERRL, Lids normal, sclera normal, conjunctiva normal, nose normal , ears normal, throat without erythema or exudates Neck: Supple, no adenopathy Lung: breath sounds symmetric, no wheezing, rales or rhonchi Chest: symmetric movement, nontender Heart: regular rate and rhythm, normal S1, S2 no murmurs or rubs Abdomen: soft, non-tender, nondistended, normal bowel sounds Back: no vertebral tenderness, no CVAT Extremities: no deformities, moves all extremities symmetrically Neuro: Awake, alert, oriented, normal speech, cranial nerves intact, moves all extremities symmetrically Psych: Pleasant, cooperative Medical Decision Making Medical Decision Making [facility] Narrative: 54-year-old female who presents emergency department for evaluation of palpitations and elevated blood pressure after taking new medication your Marjorie for her migraine headaches. Symptoms started approximately 1 hour after taking the medication. The medication did relieve her headache. Vital signs did reveal an elevated blood pressure and elevated heart rate of 120 beats per minute. Differential diagnosis: ?Includes but is not limited to adverse drug reaction, anxiety, anemia, electrolyte abnormalities, myocardial infarction, myocardial ischemia, arrhythmia Following evaluation was ordered: CBC, CMP, troponin, EKG Course: My interpretation patient's laboratory evaluation is as follows: WBC was elevated 11,500. CMP was normal. Troponin was below detectable limits. Twelve EKG was consistent with sinus tachycardia. At this time I suspect that the patient's symptoms may be related to anxiety however adverse drug reaction needs to be considered. I told the patient that she should not take Ubrelvy again until she discuss her symptoms with the prescribing provider. She was given printed and verbal instructions and discharged home. Admission/Observation Consideration of admission/observation: Escalation of care including admission/observation considered Lab Data [facility] Lab Attestation statement: I reviewed the patient's lab results. 05/09/24 01:00 05/09/24 01:00 Labs: Lab Results 05/09/24 Range/Units 01:00 WBC 11.5 H (4.8-10.8) X10*3/uL RBC 4.83 (4.20-5.50) X10*6/uL Hgb 14.1 (12.0-16.0) g/dl Hct 41.5 (37.0-47.0) % MCV 85.9 (80.0-98.0) fL MCH 29.2 (27.0-33.0) pg MCHC 34.0 (31.0-35.0) g/dl RDW 13.4 (11.0-16.0) % Plt Count 358 (160-400) X10*3/uL MPV 9.1 L (9.4-12.3) fL Immature Gran % (Auto) 0.3 (0.0-0.4) % Neut % (Auto) 55.1 (45-73) % Lymph % (Auto) 34.2 (20-40) % Mellette % (Auto) 7.1 (2-11) % Eos % (Auto) 2.9 (0-4) % Baso % (Auto) 0.4 (0-2) % Lymph # (Auto) 3.9 (1.2-4.9) X10*3/uL Mellette # (Auto) 0.8 (0.1-1.2) X10*3/uL Eos # (Auto) 0.3 (0.0-0.4) X10*3/uL Baso # (Auto) 0.1 (0.0-0.2) X10*3/uL Abs Immat Gran (auto) 0.04 H (0.00-0.03) X10*3/uL Absolute Neuts (auto) 6.3 (2.0-8.3) x10*3/uL Absolute Nucleated RBC 0.000 (0.0-0.012) X10*3/uL Nucleated RBC % (auto) 0.0 (0.0-0.2) /100WBC Sodium 138 (135-145) mmol/L Potassium 3.7 (3.3-5.1) mmol/L Chloride 103 (96-108) mmol/L Carbon Dioxide 26 (22-29) mmol/L Anion Gap 13 (12-20) BUN 12 (9-16) mg/dL Creatinine 1.10 (0.5-1.4) mg/dL Estim Creat Clear Calc 59.8 Estimated GFR 52 Random Glucose 96 (60-115) mg/dL Calcium 10.0 (8.4-10.2) mg/dL Total Bilirubin 0.3 (0.0-1.0) mg/dL AST 30 (5-31) U/L ALT 30 (0-31) U/L Alkaline Phosphatase 100 (39-117) U/L Troponin I High Sens < 2.7 D (<3.5-17.0) ng/L Total Protein 7.6 (6.5-8.0) g/dL Albumin 4.1 (3.5-5.0) g/dL Independent Interpretation I performed an independent interpretation of an: EKG Interpretation: My interpretation patient was 12 EKG done at 00:40 hours is as follows: Sinus tachycardia with a rate of 115, normal HI interval, QRS duration QTC interval, no ST segment elevation, no ST segment depression, no PACs, no PVCs, no significant T-wave abnormalities, this is a normal EKG except for the sinus tachycardia. Chronic Conditions Patient?s care impacted by: Hypertension Discharge Plan Discharge Clinical Impression: Sinus tachycardia Patient Disposition: Home, Self-Care Additional Instructions: Your blood work was normal. Your troponin (marker of heart attack or heart damage) was below detectable limits which is reassuring. Your EKG revealed a normal fast heart rate with no significant changes to suggest that you having a heart attack or damage to your heart from a medicine that you took. Your fast heart rate and high blood pressure may be a reaction to the new medication that you took or may be caused by anxiety from taking new medication. You need to talk to the provider that prescribed Ubrelvy to determine if you should try this medication again or if you should stop this medication. Do not take this medication until you talk to your provider Continue your other medications as prescribed Follow-up with your doctor in 2 days. Please return to the emergency department if your symptoms get worse or if you develop any symptoms that are concerning to you. Prescriptions: No Action metoclopramide HCl [Reglan] 10 mg tablet 10 mg PO Q6H PRN (Reason: Headache, nausea or vomiting) Qty: 14 0RF Stelara 90 mg/mL syringe subcut Q8W desvenlafaxine succinate 100 mg tablet extended release 24 hr 200 mg PO QAM ziprasidone HCl 80 mg capsule 80 mg PO BID gabapentin 300 mg capsule 300 mg PO DAILY omeprazole 40 mg capsule,delayed release(DR/EC) 40 mg PO DAILY propranolol 60 mg capsule,extended release 24 hr 60 mg PO DAILY lamotrigine 200 mg tablet 200 mg PO DAILY ondansetron HCl 8 mg tablet 8 mg PO DAILY PRN albuterol sulfate 90 mcg/actuation HFA aerosol inhaler 1 inh inhalation QID Ubrelvy 100 mg tablet 50 - 100 mg PO ONCE PRN (Reason: migraine headache) 30 Days Qty: 16 3RF Rx Instructions: take at onset of migraine, may repeat in 2hrs (may take w/ Ibuprofen) Interventions: ED Discharge Assessment Last Done: 05/09/24 06:16 Discharge Date/Time: 05/09/24 06:17 Print Language: Italian
[2024-05-09 04:28] VITALS: PULSE 82
[2024-05-09 06:01] VITALS: BP 152/77; PULSE 89; RESP 14; TEMP 36.6; O2SAT 97
[2024-05-09 06:16] VITALS: BP 152/77; PULSE 89; RESP 14; TEMP 36.6; O2SAT 97
== END 2024-05-09 06:17 | disposition home or self-care (01) ==
PROVIDERS: Emergency Provider Emergency Medicine Emergency Medical Services; PCP Internal Medicine
DX: R00.0 Tachycardia, unspecified (principal); I10 Essential (primary) hypertension; G43.909 Migraine, unspecified, not intractable, without status migrainosus
CPT/HCPCS: 36415; 80053; 84484; 85025; 93005; 99283; 99285

== ENCOUNTER → 2024-05-09 00:40 | Outpatient (BNV) | payer OTHER, SELFPAY | PROVIDERS: Emergency Provider Emergency Medicine Emergency Medical Services; PCP Internal Medicine; Visit Provider Internal Medicine | DX: I10 Essential (primary) hypertension (principal); R00.2 Palpitations; R00.0 Tachycardia, unspecified | CPT/HCPCS: 93010 ==

== ENCOUNTER 2024-07-16 16:48 | Emergency (ER) | payer OTHER, SELFPAY ==
[2024-07-16 16:54] VITALS: BP 162/88; PULSE 120; O2SAT 97
[2024-07-16 16:57] VITALS: BP 157/87; PULSE 109; RESP 20; TEMP 36.4; O2SAT 97; BMI 37.6
--- NOTE | 2024-07-16 18:00 | PC.NURSE ---
Upon entering room to let patient know provider was aware that patient wanted to be discharged, patient not in room. Cardiac monitoring leads removed, and sitting in bed. Patient with EMS placed IV line. Multiple attempts to call patient unsuccessful at this time
--- NOTE | 2024-07-16 18:27 | PC.NURSE ---
Attempted to call patients primary contact daughter russell to discuss concern for EMS Iv line in pt and if she had self-removed. Message left on voicemail to call [facility].
--- NOTE | 2024-07-16 18:31 | PC.NURSE ---
Call placed to [place] Non- emergent number to ask PD to check to see if patient still has IV line in place , dispatcher stating they will return call if they are able to make contact with patient
--- NOTE | 2024-07-16 18:51 | PC.NURSE ---
SPOKE WITH EPD- PT WAS HOME, IV WAS NOT IN PLACE AND PT HAS DECLINED FURTHER MEDICAL TREATMENT
== END 2024-07-17 18:55 | disposition left against medical advice (07) ==
PROVIDERS: Emergency Provider Emergency Medicine
DX: T42.6X1A Poisoning by other antiepileptic and sedative-hypnotic drugs, accidental (unintentional), initial encounter (principal); Y92.9 Unspecified place or not applicable; Z53.21 Procedure and treatment not carried out due to patient leaving prior to being seen by health care provider
CPT/HCPCS: 99281

== ENCOUNTER 2024-09-01 13:17 | Outpatient (AMB) | payer OTHER, SELFPAY ==
--- NOTE | 2024-09-01 13:22 | A.OFFPC_ITS ---
Vital Signs 09/01/24 13:30 Height 5 ft 3 in Weight 198 lb BMI 35.1 BP 130/76 Blood Pressure Location Lt brachial Position Sitting Pulse 102 H Pulse Source Pulse Oximeter Pulse Oximetry (%) 96 Oxygen Delivery Method Room Air Intake Visit Reasons: Chron's disease/GI referral Intake Note: Patient is here to follow up on Crohn's disease flair up. Requesting for GI referral. Superintendent Maintenance Required: No Coating Line Worker: Not Required per policy Accompanied by: Self / Same As Patient Allergies azathioprine [From IMURAN] Allergy (Severe, Verified 09/01/24 14:15) UNKNOWN Penicillins [PCN] Allergy (Severe, Verified 09/01/24 14:15) ANAPHYLAXIS oxycodone Allergy (Intermediate, Verified 09/01/24 14:15) Palpitations amoxicillin [AMOXICILLIN] Allergy (Unknown, Verified 09/01/24 14:15) RAPID HEART RATE quetiapine [From SEROQUEL] Allergy (Unknown, Verified 09/01/24 14:15) RAPID HEART RATE aspirin [ASA] Adverse Reaction (Mild, Verified 09/01/24 14:15) RASH WHEN TAKEN FOR A LONG TIME contrast dye ? type Adverse Reaction (Unknown, Uncoded 09/01/24 14:15) hyperventilation Medication List - Last Reconciled 09/01/24 by Severo Hardwick MD albuterol sulfate 90 mcg/actuation 1 inh inhalation QID desvenlafaxine succinate ER 200 mg PO QAM gabapentin 300 mg PO DAILY lamotrigine 200 mg PO DAILY mecobalamin (vitamin B12) 5,000 mcg PO DAILY omeprazole 40 mg PO DAILY ondansetron HCl 8 mg PO DAILY PRN pedi multivit no.19-folic acid 200 mcg (Flintstones Multi-Vitamins Gummies) tabs PO propranolol ER 60 mg PO DAILY ubrogepant (Ubrelvy) 50 - 100 mg (0.5 - 1 x 100 mg) PO ONCE PRN 30 days Tobacco use date assessed: 09/01/24 Dental Screening Dental Screen Date: 01/07/24 HPI Chron's disease/GI referral HPI Details 54-year-old female presents to the offic e to discuss her chronic medical conditions. Since last office visit, patient saw the neurologist. She started getting medications for migraines but has not completed her sleep study test yet. Patient is on propranolol, Ubrogepant Today she is requesting a referral for a spinning machine operator. Patient reports that she has been diagnosed with Crohn's disease many years ago. Currently on no medications. She does not have a spinning machine operator as her previous one retired 5 years ago. Her last colonoscopy was 5 years ago. Patient is reporting symptoms of right lower quadrant pain, diarrhea and reflux disease. Requesting a refill on her nausea medications. Patient has history of bipolar illness and sees a psychiatrist in [place]. Currently on desvenlafaxine, Lamictal and gabapentin. [facility] Medical History (Updated 09/01/24 @ 14:22 by Severo Hardwick MD) Sleep difficulties Migraine without aura Bipolar disorder Acute Crohn's disease Fibromyalgia Surgical History History of hand surgery History of colonoscopy History of D&C History of eye surgery Family History Other Mental health disorder Substance use disorder Social History Housing: House Alcohol intake: never Patient Tobacco Use Status: Never used Tobacco Tobacco use type: Smokeless Tobacco e-Cigarette/Vaping Use: Former Use Second Hand Smoke Exposure: No Substance Use Type: Marijuana service: No Current occupational status: employed Current occupation: DDS Cognitive needs: No Hearing needs: No Vision needs: Yes (Glasses) Questionnaire Thrive Questionnaire Date Thrive assessed: 01/07/24 Are you currently unemployed and looking for a job?: No LUL-7 AMB Questionnaire LUL-7 Date LUL - 7 assessed: 01/07/24 Source: Developed by Drs. Lane Sierra, Gela Robert, Donte Alvarez and colleagues, with an educational tamiko from [email or web address]. Physical exam (Primary Care) Vital Signs: Last Vital Signs Pulse 102 H 09/01/24 13:30 BP 130/76 09/01/24 13:30 Pulse Ox 96 09/01/24 13:30 Oxygen Delivery Method Room Air 09/01/24 13:30 BMI result Body Mass Index 35.1 Tobacco/Smoking Status: Tobacco use Status Tobacco use date assessed 09/01/24 09/01/24 13:39 Patient Tobacco Use Status Never used Tobacco 09/01/24 13:38 Tobacco use type Smokeless Tobacco 09/01/24 13:38 e-Cigarette/Vaping Use Former Use 09/01/24 13:39 Thrive Assessment: Date of Thrive Assessment Date Thrive assessed 01/07/24 09/01/24 13:23 Const General: cooperative and healthy appearing Nutritional Appearance: well nourished Orientation/consciousness: patient oriented x3 Limitations: no limitations HENMT Head: Yes normal to inspection Eyes General: appearance normal, both eyes and all related structures Neck Neck: Yes normal visual inspection Chest Chest palpation & inspection: normal palpation of entire chest wall Resp Effort & Inspection: normal respiratory effort Neuro General: patient oriented x3 Coding Level of Care Code Est Pt Level 4 (89615) Complex EM visit Add On G2211 Diagnoses Acute Crohn's disease K50.90 Bipolar disorder F31.9 HTN (hypertension) I10 GERD (gastroesophageal reflux disease) K21.9 Sleep difficulties G47.9 Assessment & Plan Assessment & Plan (1) Acute Crohn's disease: Code(s): K50.90 - Crohn's disease, unspecified, without complications Category: Medical Plan: Refill for Zofran sent. A GI consult has been placed. (2) Bipolar disorder: Code(s): F31.9 - Bipolar disorder, unspecified Category: Medical Plan: Condition is stable. Continue current medications. (3) HTN (hypertension): Code(s): I10 - Essential (primary) hypertension Category: Medical Plan: Blood pressure is stable. Continue medications at same dosage. (4) GERD (gastroesophageal reflux disease): Code(s): K21.9 - Gastro-esophageal reflux disease without esophagitis Category: Medical Plan: Continue PPI at same dosage. (5) Sleep difficulties: Code(s): G47.9 - Sleep disorder, unspecified Category: Medical Plan: Encouraged to get the sleep study done. Plan Screening mammogram has been ordered. Orders: Orders MM screening mammo BI Today Z12.31 - Encounter for screening mammogram for malignant neoplasm of breast Referrals Gastroenterology Referral K50.90 - Crohn's disease, unspecified, without complications
[2024-09-01 13:30] VITALS: BP 130/76; PULSE 102; O2SAT 96; BMI 35.1
== END 2024-09-01 14:10 | disposition home or self-care (01) ==
PROVIDERS: PCP Internal Medicine; Visit Provider Internal Medicine
DX: K50.90 Crohn's disease, unspecified, without complications (principal); F31.9 Bipolar disorder, unspecified; I10 Essential (primary) hypertension; K21.9 Gastro-esophageal reflux disease without esophagitis; G47.9 Sleep disorder, unspecified

== ENCOUNTER → 2024-09-01 13:17 | Outpatient (BNVA) | payer OTHER, SELFPAY | PROVIDERS: Visit Provider Internal Medicine | DX: K50.90 Crohn's disease, unspecified, without complications (principal); F31.9 Bipolar disorder, unspecified; I10 Essential (primary) hypertension; K21.9 Gastro-esophageal reflux disease without esophagitis; G47.9 Sleep disorder, unspecified | CPT/HCPCS: 99212 ==

== ENCOUNTER 2024-12-22 13:18 | Outpatient (AMB) | payer SELFPAY ==
--- NOTE | 2024-12-22 13:21 | A.OFFVIS_ITS ---
Vital Signs 12/22/24 13:25 Height 5 ft 3 in Weight 198 lb 6.656 oz BMI 35.1 BP 137/77 Blood Pressure Location Lt brachial Position Sitting Pulse 104 H Intake Visit Reasons: Crohn's disease, unspecified Intake Note: Caryn presents in the office as a new patient for crohns disease. CC: Touch Up Painter Required: No Allergies azathioprine [From IMURAN] Allergy (Severe, Verified 12/22/24 13:25) UNKNOWN Penicillins [PCN] Allergy (Severe, Verified 12/22/24 13:25) ANAPHYLAXIS oxycodone Allergy (Intermediate, Verified 12/22/24 13:25) Palpitations amoxicillin [AMOXICILLIN] Allergy (Unknown, Verified 12/22/24 13:25) RAPID HEART RATE quetiapine [From SEROQUEL] Allergy (Unknown, Verified 12/22/24 13:25) RAPID HEART RATE aspirin [ASA] Adverse Reaction (Mild, Verified 12/22/24 13:25) RASH WHEN TAKEN FOR A LONG TIME contrast dye ? type Adverse Reaction (Unknown, Uncoded 12/22/24 13:25) hyperventilation HPI Comments Details: 54 y.o F with hx of crohns, fibromylagia, migraines. IBD Hx: Location: small and large intestine Age/yr of diagnosis: 41 y.o/ 2012 Prev meds: Humira, inflximab, stelara Current meds: None Steroid use: 4 years ago Surgeries: None Recent endoscopy: > 5 years ago. Recent imaging: N/A EIM: Joint pains Fam hx: Cousin crohns. Pat grandfather: crc. Was established with [facility] (Dr Phillips) was on Humira initially with secondary non-response and then Renflexis q6w x years with recent loss of response in 2022. Was switched to Stelara however by the end of 2022 pt had a switch in her insurance and [facility] was no longer covered. She has been without any medication for her crohns since then. Since summer, she started noticing relapse of sx. Currently reports active disease with cramping in L side with bloating and up to 6 BMs per day. Urgency +, tenesmus +, no night time sx. No blood. Mucus +. No weight loss. [facility] Medical History (Updated 09/01/24 @ 14:22 by Severo Hardwick MD) Sleep difficulties Migraine without aura Bipolar disorder Acute Crohn's disease Fibromyalgia Surgical History (Updated 09/24/24 @ 09:19 by Severo Hardwick MD) History of hand surgery History of colonoscopy (~05/09/22) History of D&C History of eye surgery Family History Other Mental health disorder Substance use disorder Social History Housing: House Alcohol intake: never Patient Tobacco Use Status: Never used Tobacco Tobacco use type: Smokeless Tobacco e-Cigarette/Vaping Use: Former Use Second Hand Smoke Exposure: No Substance Use Type: Marijuana service: No Current occupational status: employed Current occupation: DDS Cognitive needs: No Hearing needs: No Vision needs: Yes (Glasses) Review of Systems Const All systems reviewed & are unremarkable except as noted in HPI and below Physical Exam Vital Signs: Last Vital Signs Pulse 104 H 12/22/24 13:25 BP 137/77 12/22/24 13:25 BMI result Body Mass Index 35.1 No apparent distress Nonicteric Abdomen soft, nondistended Alert and oriented x3, normal gait Assessment & Plan Assessment & Plan (1) Acute Crohn's disease: Code(s): K50.90 - Crohn's disease, unspecified, without complications Category: Medical (2) GERD (gastroesophageal reflux disease): Code(s): K21.9 - Gastro-esophageal reflux disease without esophagitis Category: Medical Plan Has active crohns since last year since lapse of her insurance and loss of access to Stelara. Will obtain baseline labs and start PA for stelara. Since IL- 12/23 not immunogenic, hoping to recapture response after re-induction. - Disease and monitoring: Active * CBC, CMP, CRP, fecal calpro * Once labs submitted, can start prednisone 60 once daily x 2 weeks followed by taper 10mg q3d * Start PA for stelara once labs available * TSPOT, hep serologies ordered - Nutrition: * Iron studies, B12 and folate ordered - Bone Health: Normal Vit D ordered - IBD dysplasia screening: DUE. To be addressed at next visit. - Sun safety/pap/mammo: to be addressed at next visit. GERD: Pt also reports significant pyrosis and regurg that starts within a few mins of eating. On omeprazole which is not helping. EGD 2021 without EoE or esophageal crohns. Plan: - Switch to nexium 20 BID Follow up 6 weeks Orders: Orders Comprehensive Met. Panel Today K50.90 - Crohn's disease, unspecified, without complications Hepatitis B Surface Antibody Today K50.90 - Crohn's disease, unspecified, without complications Prothrombin Time INR Today K50.90 - Crohn's disease, unspecified, without complications Ferritin Today K50.90 - Crohn's disease, unspecified, without complications IRON PROFILE Today K50.90 - Crohn's disease, unspecified, without complications Complete Blood Count no Diff Today K50.90 - Crohn's disease, unspecified, without complications Calprotectin, Fecal Today K50.90 - Crohn's disease, unspecified, without complications Hepatitis A IgG Today K50.90 - Crohn's disease, unspecified, without complications Hepatitis B Core Antibody Today K50.90 - Crohn's disease, unspecified, without complications Hepatitis B Surface Antigen Today K50.90 - Crohn's disease, unspecified, with out complications Hepatitis C Antibody Today K50.90 - Crohn's disease, unspecified, without complications T Spot TB Today K50.90 - Crohn's disease, unspecified, without complications C Reactive Protein Today K50.90 - Crohn's disease, unspecified, without complications Vitamin B12 and Folate Today K50.90 - Crohn's disease, unspecified, without complications Medications: New prednisone 60 mg (3 x 20 mg) PO DAILY 2 weeks 42 tabs 0RF esomeprazole magnesium 20 mg PO BID 30 days 60 caps 0RF Coding Level of Care Code New Pt Level 5 (08918) Complex EM visit Add On G2211 Diagnoses Acute Crohn's disease K50.90 GERD (gastroesophageal reflux disease) K21.9
[2024-12-22 13:25] VITALS: BP 137/77; PULSE 104; BMI 35.1
== END 2024-12-22 14:50 | disposition home or self-care (01) ==
PROVIDERS: PCP Internal Medicine; Visit Provider Internal Medicine
DX: K50.90 Crohn's disease, unspecified, without complications (principal); K21.9 Gastro-esophageal reflux disease without esophagitis
CPT/HCPCS: 99204; G2211

== ENCOUNTER → 2024-12-22 13:18 | Outpatient (BNVA) | payer SELFPAY | PROVIDERS: PCP Internal Medicine; Visit Provider Internal Medicine | DX: K50.90 Crohn's disease, unspecified, without complications (principal); K21.9 Gastro-esophageal reflux disease without esophagitis | CPT/HCPCS: 99202 ==

== ENCOUNTER → 2024-12-22 14:21 | Outpatient (BNVA) | payer OTHER, SELFPAY | PROVIDERS: PCP Internal Medicine; Visit Provider Physician Assistant Medical | DX: S43.51XA Sprain of right acromioclavicular joint, initial encounter (principal); S63.501A Unspecified sprain of right wrist, initial encounter; W51.XXXA Accidental striking against or bumped into by another person, initial encounter | CPT/HCPCS: 73030; 99202 ==

== ENCOUNTER 2024-12-28 19:24 | Outpatient (REF) | payer OTHER, SELFPAY ==
--- NOTE | ~2024-12-28 | MR_ITS ---
EXAMINATION: MRI RIGHT SHOULDER WITHOUT CONTRAST HISTORY: DECREASED ROM, PAIN COMPARISON: Correlation is made with plain films of the right shoulder dated 12/22/2024. TECHNIQUE: Coronal T1, T2, and fat suppressed T2, axial fat suppressed proton density, and sagittal T2 weighted MR images of the right shoulder were obtained. FINDINGS: There is a tiny focus of marrow edema adjacent to the greater tuberosity of the humerus. Bone marrow signal intensity is otherwise normal. There is no glenohumeral joint effusion. The glenohumeral and acromioclavicular joints are maintained. There is mild fraying of the bursal surface of the anterior aspect of the distal supraspinatus tendon, suggestive of a partial bursal surface tear. A tiny focus of fluid signal intensity is noted at the insertion of the distal supraspinatus tendon consistent with a tiny full-thickness tear (series 8, image 14). There is no tendon retraction or muscle atrophy. There is trace fluid in the subcutaneous deltoid bursa. The subscapularis, teres minor, and infraspinatus tendons are intact. The biceps tendon is normally located. There is thickening of a structure adjacent to the anterior labrum which may represent a thickened middle glenohumeral ligament or anterior band of the inferior glenohumeral ligament. Evaluation is limited by lack of a joint effusion. MR/MR shoulder RT wo con IMPRESSION: 1. Findings consistent with a partial bursal surface tear of the distal supraspinatus tendon with a tiny full-thickness tear at the insertion. 2. Thickening of a structure adjacent to the anterior labrum, which may represent a thickened middle glenohumeral ligament or anterior band of the inferior glenohumeral ligament. This could be further evaluated with MR arthrography if desired. Electronically signed by: Lane Haile MD 12/29/2024 07:26 AM EST
== END 2024-12-28 19:25 | disposition home or self-care (01) ==
LOC: HO.MRI 19:24
PROVIDERS: PCP Internal Medicine; Visit Provider Physician Assistant Medical
DX: M62.81 Muscle weakness (generalized) (principal)
CPT/HCPCS: 73221

== ENCOUNTER → 2024-12-28 19:43 | Outpatient (BNV) | payer OTHER, SELFPAY | PROVIDERS: PCP Internal Medicine; Visit Provider Radiology Diagnostic Radiology | DX: M25.511 Pain in right shoulder (principal) | CPT/HCPCS: 73221 ==

== ENCOUNTER 2024-12-29 14:39 | Outpatient (REF) | payer SELFPAY ==
[2024-12-29 15:47] LABS: Hematocrit 40.6 % (37.0-47.0); Hemoglobin 13.6 g/dl (12.0-16.0); Mean Corpuscular HGB Conc 33.5 g/dl (31.0-35.0); Mean Corpuscular Hemoglobin 29.8 pg (27.0-33.0); Mean Corpuscular Volume 88.8 fL (80.0-98.0); Mean Platelet Volume 9.1 fL (9.4-12.3); Platelet Count 308 X10*3/uL (160-400); Red Blood Count 4.57 X10*6/uL (4.20-5.50); Red Cell Distribution Width 13.4 % (11.0-16.0); White Blood Count 8.7 X10*3/uL (4.8-10.8)
[2024-12-29 15:47] LABS: Appearance Urine Clear; Color Urine Yellow; Glucose Urine UA Negative (Negative); Leukocyte Esterase Urine Small (1+) (Negative); Nitrite Urine Negative (Negative); Specific Gravity - Urine 1.025 (1.005-1.025); UMIC TRIGGER UACC YES; Urine Blood Negative (Negative); Urine Ketones Trace mg/dL (Negative); Urine Protein Trace mg/dL (Neg-Trace)
[2024-12-29 16:04] LABS: Prothrombin Time 11.2 SEC (10.9-12.4)
[2024-12-29 16:08] LABS: Bacteria Urine Trace (None Seen); Hyaline Casts Urine 0-2 /LPF (0-2); RBC Urine 0-2 /HPF (0-2); UACC Culture Trigger YES; WBC Urine 0-5 /HPF (0-5)
[2024-12-29 16:17] LABS: Alanine Aminotransferase 19 U/L (0-31); Albumin Level 3.9 g/dL (3.5-5.0); Alkaline Phosphatase 101 U/L (39-117); Anion Gap 14 (12-20); Aspartate Amino Transferase 26 U/L (5-31); Bilirubin Total 0.2 mg/dL (0.0-1.0); Blood Urea Nitrogen 10 mg/dL (9-16); C Reactive Protein 0.96 mg/dL (< or = 0.50); Calcium 9.5 mg/dL (8.4-10.2); Carbon Dioxide 25 mmol/L (22-29); Chloride 106 mmol/L (96-108); Estimated Glomerular Filt Rate > 60; Glucose Random 107 mg/dL (60-115); Iron 74 mcg/dL (30-160); Percent Iron Saturation 24 % (15-50); Sodium 141 mmol/L (135-145); Total Iron Binding Capacity 314 mcg/dL (228-428); Total Protein 7.7 g/dL (6.5-8.0); Unsaturated Iron Binding 240 ug/dL
[2024-12-29 16:30] LABS: Ferritin 40 ng/mL (10-250)
[2024-12-29 16:45] LABS: Folate 18.2 ng/mL (> or = 4.0); Vitamin B12 915 pg/mL (200-900)
[2024-12-30 05:46] LABS: HBS Num1 0.72 mIU/mL (0-7.99); HBc Num1 0.13 S/CO (0.00-0.79); HBsAGNum1 0.35 S/CO (0.00-0.99); Hepatitis B Core Antibody Nonreactive (Nonreactive); Hepatitis B Surface Antigen Negative (Negative); ~HepC Num1 0.14 S/CO (0.00-0.79); ~Hepatitis B Surface Antibody NONREACTIVE (Nonreactive); ~Hepatitis C Antibody Nonreactive (Nonreactive)
[2024-12-30 05:58] LABS: Hepatitis A Antibody IgG Nonreactive (Nonreactive)
[2025-01-01 15:44] LABS: TS Negative Control Passed; TS Panel A 0; TS Panel B 0; TS Positive Control Passed; TSpotTB Negative (Negative)
== END 2024-12-29 14:40 | disposition home or self-care (01) ==
LOC: HO.LAB 14:39
PROVIDERS: PCP Internal Medicine; Visit Provider Internal Medicine
DX: K50.90 Crohn's disease, unspecified, without complications (principal); R39.9 Unspecified symptoms and signs involving the genitourinary system
CPT/HCPCS: 36415; 80053; 81001; 82607; 82728; 82746; 83540; 85027; 85610; 86140; 86481; 86704; 86706; 86708; 86803; 87086; 87340

== ENCOUNTER → 2025-01-05 13:02 | Outpatient (BNVA) | payer OTHER, SELFPAY | PROVIDERS: PCP Internal Medicine; Visit Provider Physician Assistant | DX: M75.101 Unspecified rotator cuff tear or rupture of right shoulder, not specified as traumatic (principal) | CPT/HCPCS: 99213 ==

== ENCOUNTER → 2025-02-02 15:41 | Outpatient (BNVA) | payer OTHER, SELFPAY | PROVIDERS: PCP Internal Medicine; Visit Provider Physician Assistant Medical | DX: M75.101 Unspecified rotator cuff tear or rupture of right shoulder, not specified as traumatic (principal) | CPT/HCPCS: 99213 ==

== ENCOUNTER 2025-02-18 09:53 | Outpatient (AMB) | payer OTHER, SELFPAY ==
--- NOTE | 2025-02-18 09:59 | MHC.OFFVIS ---
Vital Signs 02/18/25 10:05 Height 5 ft 3 in Weight 198 lb BMI 35.1 Handedness Right Intake Visit Reasons: [employer]-RT shoulder injury DOI: 12/05/24 Intake Note: Caryn is a 54 year old right hand dominant female who presents today as a new patient with a sling for a evaluation of her right shoulder pain, WC 12/05/24. Patient states was hurt at work and she works in a long term. 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 She states that she is feeling better today, she has been adjusting how she works to prevent re injuring her shoulder. Patient has little to no pain at the moment, but she does feel sore when she over works her shoulder. IMPRESSION (MRI of the right shoulder 12/28/24): 1. Findings consistent with a partial bursal surface tear of the distal supraspinatus tendon with a tiny full-thickness tear at the insertion. 2. Thickening of a structure adjacent to the anterior labrum, which may represent a thickened middle glenohumeral ligament or anterior band of the inferior glenohumeral ligament. This could be further evaluated with MR arthrography if desired. Allergies azathioprine [From IMURAN] Allergy (Severe, Verified 02/18/25 10:05) UNKNOWN Penicillins [PCN] Allergy (Severe, Verified 02/18/25 10:05) ANAPHYLAXIS oxycodone Allergy (Intermediate, Verified 02/18/25 10:05) Palpitations amoxicillin [AMOXICILLIN] Allergy (Unknown, Verified 02/18/25 10:05) RAPID HEART RATE quetiapine [From SEROQUEL] Allergy (Unknown, Verified 02/18/25 10:05) RAPID HEART RATE aspirin [ASA] Adverse Reaction (Mild, Verified 02/18/25 10:05) RASH WHEN TAKEN FOR A LONG TIME contrast dye ? type Adverse Reaction (Unknown, Uncoded 12/22/24 13:25) hyperventilation HPI HPI [employer]-RT shoulder injury DOI: 12/05/24: Details: Ms. Max is a 54-year-old cvlbl-iqjf-otgcnbxk female who presents to the office today for evaluation of the right shoulder injury that she sustained while at work on 12/05/2024. Patient reports that she works at a long term and 1 of the patient's has autism was trying to get into a room that she was not allowed to be in. The patient was holding the door shut while the other occupant was running to force her way in. The patient presented to an urgent care where she was given a sling and instructed to follow up in 1 week. After 1 week she was given a return to work note however her right shoulder pain increased significantly and therefore she presented to the work connection for further evaluation and treatment. An x-ray and MRI were obtained and she was instructed to follow up with orthopedics outpatient for further evaluation and treatment. [facility] Medical History (Updated 02/18/25 @ 10:22 by Xiao Randolph PA-C) Sleep difficulties Migraine without aura Bipolar disorder Acute Crohn's disease Fibromyalgia Surgical History (Updated 09/24/24 @ 09:19 by Severo Hardwick MD) History of hand surgery History of colonoscopy (~05/09/22) History of D&C History of eye surgery Family History Other Mental health disorder Substance use disorder Social History Housing: House Alcohol intake: never Patient Tobacco Use Status: Never used Tobacco Tobacco use type: Smokeless Tobacco e-Cigarette/Vaping Use: Former Use Second Hand Smoke Exposure: No Substance Use Type: Marijuana service: No Current occupational status: employed Current occupation: DDS Cognitive needs: No Hearing needs: No Vision needs: Yes (Glasses) Review of Systems Const All systems reviewed & are unremarkable except as noted in HPI and below Physical Exam Vital Signs: BMI result Body Mass Index 35.1 Const General: cooperative, healthy appearing and no acute distress Resp Effort & Inspection: normal respiratory effort and able to speak in complete sentences Cardio Rate: regular rate Peripheral pulses: Peripheral pulses 2+ throughout Skin Lesions: no lesions Rashes: no rashes Extrem Other: Right shoulder: Normal to inspection. No ecchymosis, erythema, or edema. Full shoulder ROM in all planes. Negative cross-body reach. 4/5 strength with empty can. Negative drop arm. NVI. Assessment & Plan Assessment & Plan (1) Rotator cuff tear, right: Code(s): M75.101 - Unspecified rotator cuff tear or rupture of right shoulder, not specified as traumatic Category: Medical Plan Ms. Max is a 54-year-old cqtvt-jlay-tndnahqa female who presents to the office today for evaluation of the right shoulder injury that she sustained while at work on 12/05/2024. Patient reports that she works at a long term and 1 of the patient's has autism was trying to get into a room that she was not allowed to be in. The patient was holding the door shut while the other occupant was running to force her way in. The patient presented to an urgent care where she was given a sling and instructed to follow up in 1 week. After 1 week she was given a return to work note however her right shoulder pain increased significantly and therefore she presented to the work connection for further evaluation and treatment. An x-ray and MRI were obtained and she was instructed to follow up with orthopedics outpatient for further evaluation and treatment. While in the office today, we discussed the role of cortisone injection and physical therapy. Patient would like to hold off on cortisone injection at this time. She will attend physical therapy and if she is unable to progress or plateaus due to pain she will contact me and we will proceed with cortisone injection accordingly. I would like to see her back in 6 weeks for re-evaluation. I provided her with an out of work note until follow-up. Follow-up in 6 weeks, sooner if needed. Right shoulder MRI: IMPRESSION: 1. Findings consistent with a partial bursal surface tear of the distal supraspinatus tendon with a tiny full-thickness tear at the insertion. 2. Thickening of a structure adjacent to the anterior labrum, which may represent a thickened middle glenohumeral ligament or anterior band of the inferior glenohumeral ligament. This could be further evaluated with MR arthrography if desired. X-rays of the right shoulder which were obtained on 12/22/2024 were reviewed by me, Xiao Randolph PA-C, revealed no acute fracture or dislocation. Coding Level of Care Code New Pt Level 3 (82565) Diagnoses Rotator cuff tear, right M75.101
[2025-02-18 10:05] VITALS: BMI 35.1
== END 2025-02-18 10:19 | disposition home or self-care (01) ==
LOC: HO.HOS 09:54
PROVIDERS: PCP Internal Medicine; Visit Provider Physician Assistant
DX: M75.101 Unspecified rotator cuff tear or rupture of right shoulder, not specified as traumatic (principal)
CPT/HCPCS: 99203

== ENCOUNTER → 2025-02-18 09:53 | Outpatient (BNVA) | payer OTHER, SELFPAY | PROVIDERS: PCP Internal Medicine; Visit Provider Physician Assistant | DX: M75.101 Unspecified rotator cuff tear or rupture of right shoulder, not specified as traumatic (principal) | CPT/HCPCS: 99202 ==

== ENCOUNTER 2025-03-08 13:06 | Outpatient (AMB) | payer OTHER, SELFPAY ==
--- NOTE | 2025-03-08 13:35 | MHC.OFFVIS ---
Vital Signs 03/08/25 13:36 Height 5 ft 3 in Weight 198 lb BMI 35.1 Intake Visit Reasons: right shoulder injection Intake Note: Caryn is a 54 year old right hand dominant female who presents today fro a right shoulder injeciton. Allergies azathioprine [From IMURAN] Allergy (Severe, Verified 03/08/25 13:35) UNKNOWN Penicillins [PCN] Allergy (Severe, Verified 03/08/25 13:35) ANAPHYLAXIS oxycodone Allergy (Intermediate, Verified 03/08/25 13:35) Palpitations amoxicillin [AMOXICILLIN] Allergy (Unknown, Verified 03/08/25 13:35) RAPID HEART RATE quetiapine [From SEROQUEL] Allergy (Unknown, Verified 03/08/25 13:35) RAPID HEART RATE aspirin [ASA] Adverse Reaction (Mild, Verified 03/08/25 13:35) RASH WHEN TAKEN FOR A LONG TIME contrast dye ? type Adverse Reaction (Unknown, Uncoded 12/22/24 13:25) hyperventilation HPI HPI right shoulder injection: Details: Ms. Johnson is a 54-year-old female who presents the office today for right shoulder cortisone injection. At her last appointment on 02/18/2025 we discussed the role of cortisone injection however she wanted to hold off at that time. She reports that she has had increase in soreness and is willing to move forward to see if this assists her with her symptoms. [facility] Medical History (Updated 02/18/25 @ 10:22 by Xiao Randolph PA-C) Sleep difficulties Migraine without aura Bipolar disorder Acute Crohn's disease Fibromyalgia Surgical History (Updated 09/24/24 @ 09:19 by Severo Hardwick MD) History of hand surgery History of colonoscopy (~05/09/22) History of D&C History of eye surgery Family History Other Mental health disorder Substance use disorder Social History Housing: House Alcohol intake: never Patient Tobacco Use Status: Never used Tobacco Tobacco use type: Smokeless Tobacco e-Cigarette/Vaping Use: Former Use Second Hand Smoke Exposure: No Substance Use Type: Marijuana service: No Current occupational status: employed Current occupation: DDS Cognitive needs: No Hearing needs: No Vision needs: Yes (Glasses) Review of Systems Const All systems reviewed & are unremarkable except as noted in HPI and below Physical Exam Vital Signs: BMI result Body Mass Index 35.1 Const General: cooperative, healthy appearing and no acute distress Resp Effort & Inspection: normal respiratory effort and able to speak in complete sentences Cardio Rate: regular rate Peripheral pulses: Peripheral pulses 2+ throughout Skin Lesions: no lesions Rashes: no rashes Extrem Other: Right shoulder: Normal to inspection. No ecchymosis, erythema, or edema. Full shoulder ROM in all planes. Negative cross-body reach. 4/5 strength with empty can. Negative drop arm. NVI. Office Procedures AMB Joint Injection/Aspiration Joint Injection/Aspiration Primary Site: right shoulder Prep: site was prepped using aseptic technique, ethochloride spray was applied and injection warnings given Injected: 80 mg of, DepoMedrol, with 8 mL of (2% plain lidocaine) and in the subcromial space Approach Used: posterolateral Procedure: The patient tolerated the procedure well, but had some pain with the injection and there was some relief with the local anesthesia Coding - Large joint Procedure code (CPT) selection complete Assessment & Plan Assessment & Plan (1) Rotator cuff tear, right: Code(s): M75.101 - Unspecified rotator cuff tear or rupture of right shoulder, not specified as traumatic Category: Medical Plan The patient was offered a cortisone injection in the right shoulder with 80 mg of DepoMedrol. The patient was explained the risks, benefits, and alternatives to receiving this injection. After receiving consent for the injection, the patient had the procedure done while in the office today. The patient tolerated the procedure well with no complications. Follow-up will be p.r.n., or sooner if needed Coding Level of Care Code Est Pt Level 3 (26705) Diagnoses Rotator cuff tear, right M75.101 CPT Codes Coding - Large joint: 14313 - Large joint ([id number])
[2025-03-08 13:36] VITALS: BMI 35.1
== END 2025-03-08 13:36 | disposition home or self-care (01) ==
LOC: HO.HOS 13:06
PROVIDERS: PCP Internal Medicine; Visit Provider Physician Assistant
DX: M75.101 Unspecified rotator cuff tear or rupture of right shoulder, not specified as traumatic (principal)
CPT/HCPCS: 20610; 99213

== ENCOUNTER → 2025-03-08 13:06 | Outpatient (BNVA) | payer OTHER, SELFPAY | PROVIDERS: PCP Internal Medicine; Visit Provider Physician Assistant | DX: M75.101 Unspecified rotator cuff tear or rupture of right shoulder, not specified as traumatic (principal) | CPT/HCPCS: 20610; 99212; J1010; J2003 ==

== ENCOUNTER 2025-04-01 13:51 | Outpatient (AMB) | payer OTHER, SELFPAY ==
--- NOTE | 2025-04-01 13:56 | A.OFFVIS_ITS ---
Vital Signs 04/01/25 14:09 Height 5 ft 3 in Intake Visit Reasons: OV-RT shoulder injury WC DOI: 12/05/24-F/U Intake Note: Caryn is a 54 year old right hand dominant female who presents today for a follow up of her right shoulder rotator cuff tear, last injection 03/08/25. Patient reports she is doing well. She notices that physical therapy is helping her, however she is still having pain. Allergies azathioprine [From IMURAN] Allergy (Severe, Verified 04/01/25 14:08) UNKNOWN Penicillins [PCN] Allergy (Severe, Verified 04/01/25 14:08) ANAPHYLAXIS oxycodone Allergy (Intermediate, Verified 04/01/25 14:08) Palpitations amoxicillin [AMOXICILLIN] Allergy (Unknown, Verified 04/01/25 14:08) RAPID HEART RATE quetiapine [From SEROQUEL] Allergy (Unknown, Verified 04/01/25 14:08) RAPID HEART RATE aspirin [ASA] Adverse Reaction (Mild, Verified 04/01/25 14:08) RASH WHEN TAKEN FOR A LONG TIME contrast dye ? type Adverse Reaction (Unknown, Uncoded 12/22/24 13:25) hyperventilation HPI HPI OV-RT shoulder injury DOI: 12/05/24-F/U: Details: Ms. Max is a 54-year-old right-hand dominant female who presents to the office today for follow-up of a right shoulder injury that she sustained on 12/05/2024 while at work. 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 She has been on light duty since her last appointment. She has been attending physical therapy but states that only 4 visits were approved. She has been performing home exercise program. At her last appointment on 03/08/25 she received a cortisone injection and referred to physical therapy. She reports that the cortisone injection did help her. [facility] Medical History (Updated 02/18/25 @ 10:22 by Xiao Randolph PA-C) Sleep difficulties Migraine without aura Bipolar disorder Acute Crohn's disease Fibromyalgia Surgical History (Updated 09/24/24 @ 09:19 by Severo Hardwick MD) History of hand surgery History of colonoscopy (~05/09/22) History of D&C History of eye surgery Family History Other Mental health disorder Substance use disorder Social History Housing: House Alcohol intake: never Patient Tobacco Use Status: Never used Tobacco Tobacco use type: Smokeless Tobacco e-Cigarette/Vaping Use: Former Use Second Hand Smoke Exposure: No Substance Use Type: Marijuana service: No Current occupational status: employed Current occupation: DDS Cognitive needs: No Hearing needs: No Vision needs: Yes (Glasses) Review of Systems Const All systems reviewed & are unremarkable except as noted in HPI and below Physical Exam Const General: cooperative, healthy appearing and no acute distress Resp Effort & Inspection: normal respiratory effort and able to speak in complete sentences Cardio Rate: regular rate Peripheral pulses: Peripheral pulses 2+ throughout Skin Lesions: no lesions Rashes: no rashes Extrem Other: Right shoulder: Normal to inspection. No ecchymosis, erythema, or edema. Full shoulder ROM in all planes. Negative cross-body reach. 4/5 strength with empty can. Negative drop arm. NVI. Assessment & Plan Assessment & Plan (1) Rotator cuff tear, right: Code(s): M75.101 - Unspecified rotator cuff tear or rupture of right shoulder, not specified as traumatic Category: Medical Plan Ms. Max is a 54-year-old right-hand dominant female who presents to the office today for follow-up of a right shoulder injury that she sustained on 12/05/2024 while at work. 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 She has been on light duty since her last appointment. She has been attending physical therapy but states that only 4 visits were approved. She has been performing home exercise program. At her last appointment on 03/08/25 she received a cortisone injection and referred to physical therapy. She reports that the cortisone injection did help her. While in the office today, I discussed with the patient that we will attempt to position the insurance company for more visits of physical therapy. I have placed a new order while in the office today. It seems that the cortisone injection partner with the physical therapy is helping the patient greatly. The goal is to return her back to work and in order to do so she will need to work with physical therapy to regain the strength that she has lost since the injury. She will remain on light duty restrictions until her follow-up. I would like to see her back in 3-4 weeks to discuss work status, sooner if needed. Coding Level of Care Code Est Pt Level 3 (95579) Diagnoses Rotator cuff tear, right M75.101
== END 2025-04-01 14:18 | disposition home or self-care (01) ==
LOC: HO.HOS 13:52
PROVIDERS: PCP Internal Medicine; Visit Provider Physician Assistant
DX: M75.101 Unspecified rotator cuff tear or rupture of right shoulder, not specified as traumatic (principal)
CPT/HCPCS: 99213

== ENCOUNTER → 2025-04-01 13:51 | Outpatient (BNVA) | payer OTHER, SELFPAY | PROVIDERS: PCP Internal Medicine; Visit Provider Physician Assistant | DX: M75.101 Unspecified rotator cuff tear or rupture of right shoulder, not specified as traumatic (principal) | CPT/HCPCS: 99212 ==

== ENCOUNTER 2025-04-13 13:00 | Outpatient (RCR) | payer OTHER, SELFPAY ==
--- NOTE | 2025-03-09 10:31 | MHC.PT.EP ---
[facility] [place] [facility] [place] [facility] [place] Office [address] [phone] F: [phone] F: [phone] F: [phone] F: [phone] Physical Therapy Plan of Care Date of Evaluation: 03/09/25 Date of Surgery: n/a Diagnosis: RC tear R Assessment: Patient is a 54 year old female presenting to PT with complaints of pain in her R shoulder. Pt reports onset of pain began 12/05/2024 due to work injury when pulling a door closed. She presents today with impairments in pain, ROM, posture, shoulder strength. 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 Pt expresses mcc goal of returning to OF, and is motivated to work towards this in PT. Clinical presentation today is most consistent with signs and sx associated with R shoulder pain and pt will benefit from skilled PT 2 week x 4 weeks to address the following problems and impairments noted upon evaluation: pain, ROM, posture, shoulder strength. These problems limit the patient with the following functional activities: lifting, work. The prescribed treatment plan of care is medically necessary. Co-morbidities of fibromyalgia, bipolar disorder were identified and taken into considerations of plan of care. Pt was educated on HEP, role of PT, prognosis, POC. Frequency and Duration: The patient will be seen 2 x week x 4 weeks Short Term Goals: Pt will demonstrate improved R shoulder MMT strength to 5/5 in 2 weeks. Pt will demonstrate less tenderness to palpation at RC tendons in 2 weeks. Fci Goals: Pt will demonstrate improved SPADI score by 13 points in 4 weeks for improved functional mobility. Pt will demonstrate ability to lift with min to no pain in 4 weeks for return to work. Treatment Plan: Modalities to reduce pain, spasms and effusion. Manual therapy to restore motion and function. Therapeutic exercise to improve strength and flexibility. Neuromuscular re-education for posture and balance. Therapeutic activities to return to functional activities of daily living. Electronically signed by: Sherine Alas, PT, DPT, ATC Please sign and return to therapist. Thank you for your referral.
--- NOTE | 2025-04-27 13:46 | MHC.PT.DC ---
[facility] [place] [facility] [place] [facility] [place] Office [address] [phone] F: [phone] F: [phone] F: [phone] F: [phone] Physical Therapy Discharge Report Diagnosis: RC tear R Date of Surgery: n/a Date of Evaluation: 03/09/25 Date of Discharge: 04/27/25 Treatments to Date: 5 Cancellations to Date: 1 No Shows to Date: 2 Discharge Status: Visit Non-compliance Discharge Summary: Pt has failed to comply with [facility] attendance policy and no showed her last 2 scheduled appointments. Pt to be d/c per policy. Electronically signed by: Sherine Alas PT, DPT, ATC Please sign and return to therapist. Thank you for your referral.
== END 2025-04-27 13:46 | disposition home or self-care (01) ==
LOC: HO.PTCHIC 13:00
PROVIDERS: PCP Internal Medicine; Visit Provider Physician Assistant
DX: M75.101 Unspecified rotator cuff tear or rupture of right shoulder, not specified as traumatic (principal)
CPT/HCPCS: 97110; 97161

== ENCOUNTER 2025-04-21 11:27 | Outpatient (AMB) | payer OTHER, SELFPAY ==
--- NOTE | 2025-04-21 11:27 | A.OFFVIS_ITS ---
Vital Signs 04/21/25 11:28 Height 5 ft 3 in Weight 198 lb BMI 35.1 Intake Visit Reasons: TH - RT shoulder injury 12/05/24 Intake Note: Caryn is a 55 year old right hand dominant female who presents today for a follow up of her right shoulder rotator cuff tear via telehealth call, last injection 03/08/25. At her last visit we discussed her goal being able to return back to work and in order to do so she will need to work with physical therapy to regain the strength that she has lost since the injury. Allergies azathioprine [From IMURAN] Allergy (Severe, Verified 04/01/25 14:08) UNKNOWN Penicillins [PCN] Allergy (Severe, Verified 04/01/25 14:08) ANAPHYLAXIS oxycodone Allergy (Intermediate, Verified 04/01/25 14:08) Palpitations amoxicillin [AMOXICILLIN] Allergy (Unknown, Verified 04/01/25 14:08) RAPID HEART RATE quetiapine [From SEROQUEL] Allergy (Unknown, Verified 04/01/25 14:08) RAPID HEART RATE aspirin [ASA] Adverse Reaction (Mild, Verified 04/01/25 14:08) RASH WHEN TAKEN FOR A LONG TIME contrast dye ? type Adverse Reaction (Unknown, Uncoded 12/22/24 13:25) hyperventilation HPI HPI TH - RT shoulder injury 12/05/24: Details: Ms. Max is a 55-year-old female who presents via telehealth appointment for routine follow-up of right shoulder pain after injury that she sustained while at work on 12/05/2024. She states that she has been attending physical therapy. She had a cortisone injection at her last appointment which helped her greatly. She reports that she is back to baseline in regards to range of motion and she is also pain-free. She is looking to return to work full-time regular duty. [facility] Medical History (Updated 02/18/25 @ 10:22 by Xiao Randolph PA-C) Sleep difficulties Migraine without aura Bipolar disorder Acute Crohn's disease Fibromyalgia Surgical History (Updated 09/24/24 @ 09:19 by Severo Hardwick MD) History of hand surgery History of colonoscopy (~05/09/22) History of D&C History of eye surgery Family History Other Mental health disorder Substance use disorder Social History Housing: House Alcohol intake: never Patient Tobacco Use Status: Never used Tobacco Tobacco use type: Smokeless Tobacco e-Cigarette/Vaping Use: Former Use Second Hand Smoke Exposure: No Substance Use Type: Marijuana service: No Current occupational status: employed Current occupation: DDS Cognitive needs: No Hearing needs: No Vision needs: Yes (Glasses) Review of Systems Const All systems reviewed & are unremarkable except as noted in HPI and below Physical Exam Vital Signs: BMI result Body Mass Index 35.1 Extrem Other: Deferred due to telehealth Telehealth Telehealth Telehealth Platform: Telephone Location of provider rendering services: practice address Location of patient: address on file Patient Identification confirmed using: Name, : Yes Telehealth method: voice only Patient verbally consented to treatment: Yes Patient verbally consented to billing insurance company: Yes Patient informed of any privacy concerns related to visit: Yes Minutes spent on Phone/Video with Pt.: 10 Assessment & Plan Assessment & Plan (1) Rotator cuff tear, right: Code(s): M75.101 - Unspecified rotator cuff tear or rupture of right shoulder, not specified as traumatic Category: Medical Plan Ms. Max is a 55-year-old female who presents via telehealth appointment for routine follow-up of right shoulder pain after injury that she sustained while at work on 12/05/2024. She states that she has been attending physical therapy. She had a cortisone injection at her last appointment which helped her greatly. She reports that she is back to baseline in regards to range of motion and she is also pain-free. She is looking to return to work full-time regular duty. I provided the patient with a return to work note with Dr. Wheat regular duty. This will be mailed to her bird the patient's request. She will return on 05/02/2025. She will follow up with PRN, sooner if needed. Coding Level of Care Code Tele Est Pt Level 3 (14515) Diagnoses Rotator cuff tear, right M75.101
[2025-04-21 11:28] VITALS: BMI 35.1
== END 2025-04-21 11:30 | disposition home or self-care (01) ==
LOC: HO.HOS 11:27
PROVIDERS: PCP Internal Medicine; Visit Provider Physician Assistant
DX: M75.101 Unspecified rotator cuff tear or rupture of right shoulder, not specified as traumatic (principal)
CPT/HCPCS: 99213

== ENCOUNTER → 2025-04-21 11:27 | Outpatient (BNVA) | payer OTHER, SELFPAY | PROVIDERS: PCP Internal Medicine; Visit Provider Physician Assistant ==